=== PATIENT | female | born 1995 | race Caucasian/White ===

== ENCOUNTER 2017-12-20 13:23 | Emergency (ER) | payer MEDICAID, OTHER ==
--- NOTE | 2017-12-20 14:00 | ED Physician Documentation ---
PD HPI MHE - Stated complaint Stated Complaint: ANXIETY - History obtained from History obtained from: Patient - History of Present Illness Primary symptom: Anxiety, Other (trouble breathing, lump in throat and hives rash in armpits and groin for day or two. Has had rash for few days.) Timing - onset: How many days ago (several) Contributing factors: Other (she has feeling of heart rate faster, lump in throat and chest fullness, and also having rash in armpits and groin. She thought it was anxiety but relaxing and mediation aren't helping. No new soaps, foods, meds, etc.) Similar symptoms before: Has not had sx before (has had anxiety episodes int he past, but had not had rash nor throat discomfort with it.) Recently seen: Not recently seen Review of Systems Constitutional: denies: Fever, Chills Nose: denies: Rhinorrhea / runny nose, Congestion Throat: denies: Sore throat (but has a feeling of lump in the throat.) Cardiac: reports: Chest pain / pressure, Palpitations. denies: Pedal edema, Calf pain Respiratory: denies: Dyspnea, Cough GI: reports: Nausea. denies: Abdominal Pain, Vomiting, Diarrhea : denies: Dysuria, Frequency, Discharge Skin: reports: Rash. denies: Lesions (red raised rash in groin and armpits area.) Neurologic: reports: Generalized weakness. denies: Focal weakness, Numbness Psychiatric: reports: Anxiety. denies: Depressed, Suicidal, Delusions, Insomnia Immunocompromised: denies: Immunocompromised PD PAST MEDICAL HISTORY - Past Medical History Neuro: Headache/migraine Musculoskeletal: Scoliosis - Past Surgical History Past Surgical History: Yes HEENT: Tonsil/Adenoidectomy - Present Medications Home Medications: Ambulatory Orders Medication Instructions Recorded Confirmed Albuterol Sulfate [Proair Hfa 1 - 2 puffs INH Q4H PRN #1 inhaler 06/26/16 Inhaler] Cetirizine [ZyrTEC] 10 mg PO DAILY #20 tablet 12/20/17 Dexamethasone [Decadron] 4 mg PO DAILY #5 tablet 12/20/17 Famotidine [Pepcid] 20 mg PO ONCE #20 tablet 12/20/17 Lorazepam [Ativan] 1 mg PO Q12H PRN #12 tablet 12/20/17 Sertraline [Zoloft] 1 tab PO DAILY 12/20/17 12/20/17 - Allergies Allergies/Adverse Reactions: Allergies Allergy/AdvReac Type Severity Reaction Status Date / Time No Known Drug Allergies Allergy Verified 12/20/17 14:13 - Living Situation Living Arrangement: reports: At home - Social History Does the pt smoke?: No Smoking Status: Never smoker Does the pt drink ETOH?: No Does the pt have substance abuse?: No - Immunizations Immunizations are current?: Yes - POLST Patient has POLST: No PD ED PE NORMAL - Vitals Vital signs reviewed: Yes - General General: Alert and oriented X 3, No acute distress, Well developed/nourished - HEENT HEENT: Ears normal, Pharynx benign - Neck Neck: Supple, no meningeal sign, No adenopathy, Thyroid normal - Cardiac Cardiac: RRR, No murmur - Respiratory Respiratory: Clear bilaterally - Abdomen Abdomen: Soft, Non tender - Back Back: No CVA TTP - Derm Derm: Normal color, Warm and dry, Other (hives appearing rash in armpits/upper arms noted (deferred inguinal exam)) - Extremities Extremities: No deformity, No tenderness to palpate, Normal ROM s pain - Neuro Neuro: Alert and oriented X 3, No motor deficit, Normal speech Results - Vitals Vitals: Vital Signs - 24 hr 12/20/17 12/20/17 14:06 16:17 Temperature 37.1 C Heart Rate 79 97 Respiratory 16 16 Rate Blood Pressure 142/75 H 126/48 L O2 Saturation 100 100 Oxygen O2 Source Room air - Labs Labs: Laboratory Tests 12/20/17 12/20/17 12/20/17 14:41 14:41 14:41 WBC 14.3 H RBC 5.11 Hgb 14.4 Hct 42.7 MCV 83.6 MCH 28.3 MCHC 33.8 RDW 14.6 Plt Count 352 MPV 9.1 Neut # 11.7 H Lymph # 1.4 L [place] # 0.6 Eos # 0.4 Baso # 0.1 Absolute Nucleated RBC 0.00 Nucleated RBC % 0.0 ESR Sodium 137 Potassium 3.1 L Chloride 99 L Carbon Dioxide 24 Anion Gap 14.0 H BUN 17 Creatinine 0.7 Estimated GFR (MDRD) 105 Glucose 109 H Lactic Acid Calcium 9.9 Magnesium 2.0 Total Bilirubin 0.8 AST 21 ALT 34 Alkaline Phosphatase 121 Total Protein 8.7 H Albumin 5.1 Globulin 3.6 Albumin/Globulin Ratio 1.4 Lipase 16 L TSH 2.91 12/20/17 12/20/17 14:41 15:34 WBC RBC Hgb Hct MCV MCH MCHC RDW Plt Count MPV Neut # Lymph # [place] # Eos # Baso # Absolute Nucleated RBC Nucleated RBC % ESR 15 Sodium Potassium Chloride Carbon Dioxide Anion Gap BUN Creatinine Estimated GFR (MDRD) Glucose Lactic Acid 1.2 Calcium Magnesium Total Bilirubin AST ALT Alkaline Phosphatase Total Protein Albumin Globulin Albumin/Globulin Ratio Lipase TSH PD MEDICAL DECISION MAKING - ED course Complexity details: reviewed results, considered differential (seems like allergic reaction but not sure of allergen. ), d/w patient Departure - Departure Disposition: 01 Home, Self Care Clinical Impression: Acute allergic reaction Qualifiers: Encounter type: initial encounter Qualified Code(s): T78.40XA - Allergy, unspecified, initial encounter Condition: Stable Record reviewed to determine appropriate education?: Yes Instructions: ED Allergic Reaction General Other Follow-Up: [facility] [Provider Group] Prescriptions: Cetirizine [ZyrTEC] 10 mg PO DAILY #20 tablet Dexamethasone [Decadron] 4 mg PO DAILY #5 tablet Famotidine [Pepcid] 20 mg PO ONCE #20 tablet Lorazepam [Ativan] 1 mg PO Q12H PRN #12 tablet PRN Reason: Anxiety Comments: The rash with a feeling of a lump in your throat and some tightness in your chest would suggest an allergic reaction. Will treat it that way. There may be some component of anxiety as well. He can use Ativan intermittently if needed for that. Follow-up with your primary care regarding any further testing if this does not improve in the next couple of days. Discharge Date/Time: 12/20/17 16:25
[2017-12-20] MEDS ORDERED: SODIUM CHLORIDE 0.9% 1,000 ML IV ONE (14:29)
[2017-12-20] MEDS ORDERED: LORazepam 2 MG/ML VIAL IVP STA (14:30)
[2017-12-20] MEDS ORDERED: DEXAMETHASONE 10 MG/ML VIAL IVP STA (14:30)
[2017-12-20] MEDS ORDERED: diphenhydrAMINE INJ 50 MG/ML VIAL IVP STA (14:30)
[2017-12-20 14:55] LABS: BASOPHILS # (AUTO) 0.1 10^3/uL (0.0-0.1); BASOPHILS % (AUTO) 0.8 %; EOSINOPHILS # (AUTO) 0.4 10^3/uL (0.0-0.7); EOSINOPHILS % (AUTO) 2.7 %; HGB - HEMOGLOBIN 14.4 g/dL (12.0-16.0); LYMPHOCYTES # (AUTO) 1.4 10^3/uL (1.5-3.5); LYMPHOCYTES % (AUTO) 10.1 %; MEAN CORPUSCULAR HEMOGLOBIN 28.3 pg (27.0-31.0); MEAN CORPUSCULAR HGB CONC 33.8 g/dL (32.0-36.0); MEAN CORPUSCULAR VOLUME 83.6 fL (81.0-99.0); MEAN PLATELET VOLUME 9.1 fL (7.9-10.8); MONOCYTES # (AUTO) 0.6 10^3/uL (0.0-1.0); MONOCYTES % (AUTO) 4.6 %; NEUTROPHILS # (AUTO) 11.7 10^3/uL (1.5-6.6); NEUTROPHILS % (AUTO) 81.8 %; PLT - PLATELET COUNT 352 10^3/uL (130-450); RED BLOOD COUNT 5.11 10^6/uL (4.20-5.40); RED CELL DISTRIBUTION WIDTH 14.6 % (12.0-15.0); WHITE BLOOD COUNT 14.3 x10^3/uL (4.8-10.8)
[2017-12-20 15:07] LABS: ALBUMIN 5.1 g/dL (3.2-5.5); ALBUMIN/GLOBULIN RATIO 1.4 (1.0-2.2); BILIRUBIN,TOTAL 0.8 mg/dL (0.2-1.0); CALCIUM 9.9 mg/dL (8.5-10.3); CREATININE 0.7 mg/dL (0.4-1.0); TOTAL PROTEIN 8.7 g/dL (6.7-8.2)
[2017-12-20] MEDS ORDERED: POTASSIUM BICARB 25 MEQ TABLET PO STA (15:29)
[2017-12-20 16:18] VITALS: BP 126/48
== END 2017-12-20 16:25 | disposition home or self-care (01) ==
LOC: ED 13:23
DX: T78.40XA Allergy, unspecified, initial encounter (principal); F41.9 Anxiety disorder, unspecified
CPT/HCPCS: 36415; 80053; 83605; 83690; 83735; 84443; 85025; 85651; 96361; 96374; 99283; A9270; J1200; J2060

== ENCOUNTER 2018-03-08 10:37 | Emergency (ER) | payer OTHER ==
[2018-03-08] MEDS ORDERED: LORazepam 0.5 MG TABLET PO STA (12:21)
--- NOTE | 2018-03-08 12:24 | ED Physician Documentation ---
PD HPI CHEST PAIN - Stated complaint Stated Complaint: ANXIETY - Chief complaint Chief Complaint: Cardiac - History obtained from History obtained from: Patient - History of Present Illness Timing - onset: Other (This is a 23-year-old woman with history of anxiety who presents with multiple complaints including 6 months of constant chest pain worse with deep breathing, inflammation in her chest, severe anxiety and fluttering of the eyes today without losing consciousness. She was on Zoloft and stopped about a month ago for the same symptoms and it was not helping. She is not in counseling. She seen multiple physicians for this and had multiple workups including chest x-rays and EKGs without obvious pertinent findings. She was on her way to the [facility] [place] for an appointment today and they deferred her to the emergency department because her eyes were fluttering. She has no acute complaints.) Review of Systems Constitutional: denies: Fatigue, Weight Loss Cardiac: denies: Pedal edema, Calf pain Respiratory: denies: Cough, Hemoptysis, Wheezing GI: denies: Abdominal Pain : denies: Now EGA PD PAST MEDICAL HISTORY - Past Medical History Cardiovascular: None Respiratory: None Endocrine/Autoimmune: None GI: None PULMONARY PHYSICAL THERAPIST: None : None HEENT: None Psych: Anxiety Musculoskeletal: Scoliosis Derm: Eczema - Past Surgical History Past Surgical History: Yes General: Cholecystectomy HEENT: Tonsil/Adenoidectomy - Present Medications Home Medications: Ambulatory Orders Medication Instructions Recorded Confirmed Albuterol Sulfate [Proair Hfa 1 - 2 puffs INH Q4H PRN #1 inhaler 06/26/16 Inhaler] Cetirizine [ZyrTEC] 10 mg PO DAILY #20 tablet 12/20/17 Dexamethasone [Decadron] 4 mg PO DAILY #5 tablet 12/20/17 Famotidine [Pepcid] 20 mg PO ONCE #20 tablet 12/20/17 Lorazepam [Ativan] 1 mg PO Q12H PRN #12 tablet 12/20/17 Sertraline [Zoloft] 1 tab PO DAILY 12/20/17 12/20/17 Bacitracin/Polymyxin Ophth Oin 1 appful OPTH TID #1 tube 03/08/18 [Polysporin Ophth Oint] Lorazepam [Ativan] 1 mg PO TID PRN #15 tablet 03/08/18 Meloxicam [Mobic] 7.5 mg PO BIDWM PRN #15 tablet 03/08/18 - Allergies Allergies/Adverse Reactions: Allergies Allergy/AdvReac Type Severity Reaction Status Date / Time No Known Drug Allergies Allergy Verified 12/20/17 14:13 - Social History Does the pt smoke?: No Smoking Status: Never smoker Does the pt drink ETOH?: No Does the pt have substance abuse?: No - Immunizations Immunizations are current?: Yes - POLST Patient has POLST: No PD ED PE NORMAL - Vitals Vital signs reviewed: Yes - General General: Alert and oriented X 3, No acute distress - HEENT HEENT: PERRL, EOMI - Neck Neck: Supple, no meningeal sign, No bony TTP - Cardiac Cardiac: RRR, No murmur - Respiratory Respiratory: No respiratory distress, Clear bilaterally - Neuro Neuro: Alert and oriented X 3, Normal speech Results - Vitals Vitals: Vital Signs - 24 hr 03/08/18 10:48 Temperature 36.6 C Heart Rate 70 Respiratory 16 Rate Blood Pressure 133/90 H O2 Saturation 100 Oxygen O2 Source Room air PD MEDICAL DECISION MAKING - ED course ED course: 23-year-old woman with multiple complaints which seems psychosomatic, she points to her neck and I examine it and she says how it is all deviated to the right but it is symmetric. She also feels like her ribs are out on the right, there is no obvious abnormality to palpation to the posterior chest wall. She also has a mild case of pinkeye on the right which her also has. - Sepsis Event Vital Signs: Vital Signs - 24 hr 03/08/18 10:48 Temperature 36.6 C Heart Rate 70 Respiratory 16 Rate Blood Pressure 133/90 H O2 Saturation 100 Oxygen O2 Source Room air Departure - Departure Disposition: 01 Home, Self Care Clinical Impression: Anxiety Condition: Good Record reviewed to determine appropriate education?: Yes Instructions: ED Panic Attack Prescriptions: Bacitracin/Polymyxin Ophth Oin [Polysporin Ophth Oint] 1 appful OPTH TID #1 tube Lorazepam [Ativan] 1 mg PO TID PRN #15 tablet PRN Reason: Anxiety Meloxicam [Mobic] 7.5 mg PO BIDWM PRN #15 tablet PRN Reason: Pain Comments: Call your doctor to arrange a follow-up appointment, make the next available appointment. In the interim, return anytime if worse or if new symptoms develop. Your blood pressure was elevated today on check into the emergency department. This does not mean that you have hypertension, it is a common phenomenon to come to the emergency department and have elevated blood pressure. I recommend that you see your primary care physician within the week to have it rechecked when you are feeling better.
[2018-03-08 12:35] VITALS: BP 133/75
== END 2018-03-08 12:36 | disposition home or self-care (01) ==
LOC: EDUNIT# → ED 10:37
DX: F41.9 Anxiety disorder, unspecified (principal); T43.226A Underdosing of selective serotonin reuptake inhibitors, initial encounter; Z91.128 Patient's intentional underdosing of medication regimen for other reason; R03.0 Elevated blood-pressure reading, without diagnosis of hypertension
CPT/HCPCS: 99283; A9270

== ENCOUNTER 2018-04-16 09:10 | Outpatient (CLI) | payer OTHER | END 2018-04-16 09:11 | disposition critical access hospital (66) | LOC: EMS 09:10 | PROVIDERS: ATTEND Surgery | DX: R07.9 Chest pain, unspecified (principal); M25.511 Pain in right shoulder; R51 Headache | CPT/HCPCS: A0425; A0429 ==

== ENCOUNTER 2018-04-16 09:39 | Emergency (ER) | payer OTHER ==
[2018-04-16] MEDS ORDERED: KETOROLAC 60 MG/2 ML VIAL IVP STA (10:03)
[2018-04-16] MEDS ORDERED: LORazepam 2 MG/ML VIAL IVP STA (10:03)
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
--- NOTE | 2018-04-16 10:45 | XRAY Report ---
Procedure Date: 04/16/2018 Accession Number: [id number] / [id number] Procedure: XR - Chest 2 View X-Ray CPT Code: 93014 FULL RESULT: EXAM: CHEST RADIOGRAPHY EXAM DATE: 04/16/2018 10:33 AM. CLINICAL HISTORY: Cp. COMPARISON: None. TECHNIQUE: 2 views. FINDINGS: Lungs/Pleura: No focal opacities evident. No pleural effusion. No pneumothorax. Normal volumes. Mediastinum: Heart and mediastinal contours are unremarkable. Other: None. IMPRESSION: Normal 2-view chest radiography. [facility]
[2018-04-16 11:06] LABS: MUDS CUTOFF CONCENTRATIONS CUTOFF CONC BELOW:
[2018-04-16 11:08] LABS: BASOPHILS % (AUTO) 0.4 %; EOSINOPHILS # (AUTO) 0.1 10^3/uL (0.0-0.7); EOSINOPHILS % (AUTO) 0.8 %; HGB - HEMOGLOBIN 14.5 g/dL (12.0-16.0); LYMPHOCYTES # (AUTO) 1.2 10^3/uL (1.5-3.5); LYMPHOCYTES % (AUTO) 10.1 %; MEAN CORPUSCULAR HEMOGLOBIN 28.9 pg (27.0-31.0); MEAN CORPUSCULAR HGB CONC 33.7 g/dL (32.0-36.0); MEAN CORPUSCULAR VOLUME 85.8 fL (81.0-99.0); MEAN PLATELET VOLUME 9.1 fL (7.9-10.8); MONOCYTES # (AUTO) 0.8 10^3/uL (0.0-1.0); MONOCYTES % (AUTO) 6.9 %; NEUTROPHILS # (AUTO) 9.6 10^3/uL (1.5-6.6); NEUTROPHILS % (AUTO) 81.8 %; PLT - PLATELET COUNT 361 10^3/uL (130-450); RED BLOOD COUNT 4.99 10^6/uL (4.20-5.40); RED CELL DISTRIBUTION WIDTH 15.1 % (12.0-15.0); WHITE BLOOD COUNT 11.7 x10^3/uL (4.8-10.8)
[2018-04-16 11:22] LABS: ALBUMIN 4.7 g/dL (3.2-5.5); ALBUMIN/GLOBULIN RATIO 1.3 (1.0-2.2); BILIRUBIN,TOTAL 1.2 mg/dL (0.2-1.0); CALCIUM 9.5 mg/dL (8.5-10.3); CREATININE 0.7 mg/dL (0.4-1.0); TOTAL PROTEIN 8.4 g/dL (6.7-8.2)
[2018-04-16 11:26] LABS: AMPHETAMINE SCREEN,URINE NEGATIVE (NEGATIVE); BENZODIAZEPINES SCREEN, URINE NEGATIVE (NEGATIVE); COCAINE SCREEN URINE NEGATIVE (NEGATIVE); METHADONE SCREEN, URINE NEGATIVE (NEGATIVE); METHAMPHETAMINES SCREEN, URINE NEGATIVE (NEGATIVE); OPIATE SCREEN, URINE NEGATIVE (NEGATIVE); OXYCODONE SCREEN, URINE NEGATIVE (NEGATIVE); PROPOXYPHENE SCREEN, URINE NEGATIVE (NEGATIVE); TRICYCLIC ANTIDEPRESSANT,URINE NEGATIVE (NEGATIVE)
[2018-04-16 11:55] LABS: HCG,QUALITATIVE BLOOD NEGATIVE
[2018-04-16] MEDS ORDERED: POTASSIUM CHLORIDE 20 MEQ TABLET PO STA (13:19)
[2018-04-16 16:21] VITALS: BP 106/63
== END 2018-04-16 16:42 | disposition short-term general hospital (02) ==
LOC: EDUNIT# → EDBD → ED 09:39
DX: I45.6 Pre-excitation syndrome (principal); R55 Syncope and collapse; I45.81 Long QT syndrome
CPT/HCPCS: 36415; 71046; 80053; 80306; 83690; 84443; 84484; 84703; 85025; 85379; 93005; 96374; 96375; 99284; A9270; J2060

== ENCOUNTER 2019-12-07 23:51 | Outpatient (CLI) | payer OTHER | END 2019-12-07 23:59 | disposition EMS.NT | LOC: EMS 23:51 | PROVIDERS: ATTEND Surgery | DX: R11.10 Vomiting, unspecified (principal) ==

== ENCOUNTER 2020-04-20 17:41 | Outpatient (CLI) | payer SELFPAY | END 2020-04-20 17:42 | disposition home or self-care (01) | LOC: COV 17:41 | PROVIDERS: ATTEND Family Medicine | DX: R50.9 Fever, unspecified (principal); R05 Cough; R06.02 Shortness of breath; M79.10 Myalgia, unspecified site; R53.83 Other fatigue; J02.9 Acute pharyngitis, unspecified; R43.8 Other disturbances of smell and taste; R09.81 Nasal congestion; R11.2 Nausea with vomiting, unspecified; Z20.828 Contact with and (suspected) exposure to other viral communicable diseases ==

== ENCOUNTER 2020-11-04 15:16 | Outpatient (CLI) | payer SELFPAY | END 2020-11-04 15:17 | disposition EMS.NT | LOC: EMS 15:16 | DX: R00.0 Tachycardia, unspecified (principal) ==

== ENCOUNTER 2020-11-07 00:41 | Outpatient (CLI) | payer SELFPAY | END 2020-11-07 00:42 | disposition left against medical advice (07) | LOC: EMS 00:41 | DX: R45.1 Restlessness and agitation (principal); F43.9 Reaction to severe stress, unspecified; G47.00 Insomnia, unspecified; M54.9 Dorsalgia, unspecified; R07.89 Other chest pain; M79.602 Pain in left arm; M79.601 Pain in right arm; J02.9 Acute pharyngitis, unspecified ==

== ENCOUNTER 2020-11-10 13:27 | Outpatient (CLI) | payer SELFPAY | END 2020-11-10 13:28 | disposition EMS.NT | LOC: EMS 13:27 | DX: R03.0 Elevated blood-pressure reading, without diagnosis of hypertension (principal); R44.8 Other symptoms and signs involving general sensations and perceptions; R42 Dizziness and giddiness ==

== ENCOUNTER 2020-11-19 03:13 | Outpatient (CLI) | payer SELFPAY | END 2020-11-19 03:14 | disposition critical access hospital (66) | LOC: EMS 03:13 | PROVIDERS: ATTEND Emergency Medicine | DX: R00.0 Tachycardia, unspecified (principal); R42 Dizziness and giddiness; R55 Syncope and collapse; R00.2 Palpitations; R11.0 Nausea | CPT/HCPCS: A0425; A0427 ==

== ENCOUNTER 2020-11-19 03:27 | Emergency (ER) | payer SELFPAY ==
[2020-11-19] MEDS ORDERED: SODIUM CHLORIDE 0.9% 1,000 ML IV STA ×3 (03:58→06:43)
--- NOTE | 2020-11-19 04:00 | ED Physician Documentation ---
PD HPI NVD - Stated complaint Stated Complaint: SYNCOPE, DIARRHEA, VOMITING - Chief complaint Chief Complaint: General - History obtained from History obtained from: Patient - History of Present Illness Timing - onset: How many weeks ago (2) Timing - duration: Weeks (2) Timing - details: Gradual onset, Still present, Waxing and waning Associated symptoms: Abdominal pain Improved by: Other (nothing) Worsened by: Other (nothing) Similar symptoms before: Has not had sx before Recently seen: Clinic - Additonal information Additional information: 25-year-old female with history of anxiety as had an issue with vomiting and diarrhea for the past 2 1/2 weeks. She has become more and more stressed as her identical tripplet sister has developed leukemia. She feels horrible and has tried to keep working despite feeling poorly. She did have some anxiety and she tried some edibles in the form of a drink and she later discovered she had taken 200mg (usual dose is 10mg). Since that time she has had this trouble with diarrhea 3-4 times per day. This evening she developed a rapid heart rate and felt she would pass out and she called the ambulance. Review of Systems Constitutional: reports: Fatigue. denies: Fever, Chills, Myalgias Eyes: denies: Decreased vision Ears: denies: Ear pain Nose: reports: Congestion Throat: denies: Sore throat Cardiac: denies: Chest pain / pressure, Palpitations Respiratory: reports: Dyspnea. denies: Cough GI: reports: Nausea, Vomiting, Diarrhea. 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 : None HEENT: None Psych: Anxiety Musculoskeletal: Scoliosis Derm: Eczema - Past Surgical History Past Surgical History: Yes General: Cholecystectomy HEENT: Tonsil/Adenoidectomy - Present Medications Home Medications: Ambulatory Orders Medication Instructions Recorded Confirmed Cetirizine [ZyrTEC] 10 mg PO DAILY 11/19/20 11/19/20 DULoxetine [Cymbalta] 30 mg PO DAILY 11/19/20 11/19/20 LORazepam [Ativan] PRN 11/19/20 Ondansetron Odt [Zofran] 4 mg TL Q6H PRN #10 tab 11/19/20 - Allergies Allergies/Adverse Reactions: Allergies Allergy/AdvReac Type Severity Reaction Status Date / Time cephalexin [From Keflex] AdvReac Nausea Verified 11/19/20 03:44 - Social History Does the pt smoke?: No Smoking Status: Never smoker Does the pt drink ETOH?: No Does the pt have substance abuse?: No - Immunizations Immunizations are current?: Yes - POLST Patient has POLST: No PD ED PE NORMAL - Vitals Vital signs reviewed: Yes (hypertensive) - General General: Alert and oriented X 3, No acute distress, Well developed/nourished - HEENT HEENT: Atraumatic, PERRL, EOMI, Pharynx benign, Other (mild erythema to both TM's with retained landmarks.) - Neck Neck: Supple, no meningeal sign, No bony TTP, No adenopathy, Thyroid normal - Cardiac Cardiac: RRR, No murmur - Respiratory Respiratory: No respiratory distress, Clear bilaterally - Abdomen Abdomen: Normal bowel sounds, Soft, Non tender, Non distended, No organomegaly - Back Back: No CVA TTP, No spinal TTP - Derm Derm: Normal color, Warm and dry, No rash - Extremities Extremities: No deformity, No edema - Neuro Neuro: Alert and oriented X 3, 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, No motor deficit, No sensory deficit, Normal speech Eye Opening: Spontaneous Motor: Obeys Commands Verbal: Oriented GCS Score: 15 - Psych Psych: Normal mood, Normal affect Results - Vitals Vitals: Vital Signs - 24 hr 11/19/20 11/19/20 03:39 07:00 Temperature 36.5 C 36.8 C Heart Rate 85 87 Respiratory 18 16 Rate Blood Pressure 123/111 H 129/83 H O2 Saturation 100 98 Oxygen O2 Source Room air - EKG (time done) 0403 Rate: Rate (enter#) (87) Rhythm: NSR Compare to prior EKG: Changed from prior EKG (SPT 04-16-2018 the [place] interval and the QT interval are now normal ) Computer interpretation: Agree with computer - Labs Labs: Laboratory Tests 11/19/20 11/19/20 11/19/20 04:54 04:54 04:54 WBC 11.5 H RBC 4.71 Hgb 14.0 Hct 42.2 MCV 89.6 MCH 29.7 MCHC 33.2 RDW 12.6 Plt Count 298 MPV 9.8 Neut # (Auto) 9.0 H Lymph # (Auto) 1.4 L Charles # (Auto) 0.7 Eos # (Auto) 0.3 Baso # (Auto) 0.0 Absolute Nucleated RBC 0.00 Nucleated RBC % 0.0 Sodium 137 Potassium 3.5 Chloride 102 Carbon Dioxide 24 Anion Gap 11.0 BUN 13 Creatinine 0.7 Estimated GFR (MDRD) 102 Glucose 108 H Calcium 8.7 Total Bilirubin 0.7 AST 19 ALT 21 Alkaline Phosphatase 91 Troponin I High Sens 2.3 Total Protein 7.3 Albumin 4.1 Globulin 3.2 Albumin/Globulin Ratio 1.3 Lipase 32 TSH Free T4 Urine Color Urine Clarity Urine pH Ur Specific [place] Urine Protein Urine Glucose (UA) Urine Ketones Urine Occult Blood Urine Nitrite Urine Bilirubin Urine Urobilinogen Ur Leukocyte Esterase Ur Microscopic Review Urine Culture Comments 11/19/20 11/19/20 11/19/20 04:54 04:54 05:30 WBC RBC Hgb Hct MCV MCH MCHC RDW Plt Count MPV Neut # (Auto) Lymph # (Auto) Charles # (Auto) Eos # (Auto) Baso # (Auto) Absolute Nucleated RBC Nucleated RBC % Sodium Potassium Chloride Carbon Dioxide Anion Gap BUN Creatinine Estimated GFR (MDRD) Glucose Calcium Total Bilirubin AST ALT Alkaline Phosphatase Troponin I High Sens Total Protein Albumin Globulin Albumin/Globulin Ratio Lipase TSH 6.34 H Free T4 0.88 Urine Color YELLOW Urine Clarity CLEAR Urine pH 6.5 Ur Specific [place] 1.025 Urine Protein NEGATIVE Urine Glucose (UA) NEGATIVE Urine Ketones NEGATIVE Urine Occult Blood TRACE-INTA Urine Nitrite NEGATIVE Urine Bilirubin NEGATIVE Urine Urobilinogen 0.2 (NORMAL) Ur Leukocyte Esterase NEGATIVE Ur Microscopic Review NOT INDICATED Urine Culture Comments NOT INDICATED - Rads (name of study) chest Radiology: Prelim report reviewed (Impression: No active cardiopulmonary disease demonstrated.), EMP read indepedently, See rad report Procedures - IVC sono (time) 0350 Bedside IVC sono: IVC measures (cm) (0.66), IVC collapsed c insp (cm) (complete), Dehydration (est 3 liter deficit) 0710 Bedside IVC sono: IVC measures (cm) (1.46), Euvolemia PD MEDICAL DECISION MAKING - ED course Complexity details: reviewed old records, reviewed results, re-evaluated patient, considered differential, d/w patient ED course: 25-year-old female who is really not feeling well after 2-1/2 weeks of diarrhea is critically dehydrated on interrogation of the inferior vena cava. She looks like she will take about 3 L to bring her IVC back to normal. Hydration is begun and she does feel improved with hydration. She has a lot of complaints and concerns about possible things that are wrong with her and in my estimation it looks like the biggest thing that she has today is this level of dehydration. She did not have any abnormalities to her electrolytes her urine was clear.She did not have diarrhea here in the emergency department we will have her use some Imodium and we will provide some zofran as needed. She is feeling much improved IVC has come up to 1.46 with 2.5 liters. Departure - Departure Disposition: 01 Home, Self Care Clinical Impression: Dehydration Diarrhea Qualifiers: Diarrhea type: unspecified type Qualified Code(s): R19.7 - Diarrhea, unspecified Condition: Stable Instructions: ED Dehydration, ED Diet Vomiting Diarrhea Follow-Up: TESFAYE THOMAS [Physician No Access] - Prescriptions: Ondansetron Odt [Zofran] 4 mg TL Q6H PRN #10 tab PRN Reason: Nausea / Vomiting Comments: Today your symptoms appear to be related to dehydration related to your prolonge d diarrhea. Use symptomatic treatment for this and expect resolution in the next week. Stay hydrated. Use immodium as needed to control the diarrhea and zofran as needed for nausea.
[2020-11-19] MEDS ORDERED: ONDANSETRON 4 MG/2 ML VIAL IVP STA (04:50)
[2020-11-19 04:57] LABS: BASOPHILS % (AUTO) 0.3 %; EOSINOPHILS # (AUTO) 0.3 10^3/uL (0.0-0.7); EOSINOPHILS % (AUTO) 2.2 %; HCT - HEMATOCRIT 42.2 % (37.0-47.0); LYMPHOCYTES # (AUTO) 1.4 10^3/uL (1.5-3.5); LYMPHOCYTES % (AUTO) 12.3 %; MEAN CORPUSCULAR HEMOGLOBIN 29.7 pg (27.0-31.0); MEAN CORPUSCULAR HGB CONC 33.2 g/dL (32.0-36.0); MEAN CORPUSCULAR VOLUME 89.6 fL (81.0-99.0); MEAN PLATELET VOLUME 9.8 fL (7.9-10.8); MONOCYTES # (AUTO) 0.7 10^3/uL (0.0-1.0); MONOCYTES % (AUTO) 6.1 %; NEUTROPHILS % (AUTO) 78.7 %; PLT - PLATELET COUNT 298 10^3/uL (130-450); RED BLOOD COUNT 4.71 10^6/uL (4.20-5.40); RED CELL DISTRIBUTION WIDTH 12.6 % (12.0-15.0); WHITE BLOOD COUNT 11.5 x10^3/uL (4.8-10.8)
[2020-11-19 05:12] LABS: ALBUMIN 4.1 g/dL (3.2-5.5); ALBUMIN/GLOBULIN RATIO 1.3 (1.0-2.2); BILIRUBIN,TOTAL 0.7 mg/dL (0.2-1.0); CALCIUM 8.7 mg/dL (8.5-10.3); CREATININE 0.7 mg/dL (0.4-1.0); POTASSIUM 3.5 mmol/L (3.5-5.0); TOTAL PROTEIN 7.3 g/dL (6.7-8.2)
[2020-11-19 05:43] LABS: BILIRUBIN,URINE NEGATIVE (NEGATIVE); GLUCOSE, URINE (UA) NEGATIVE (NEGATIVE); KETONES,URINE (UA) NEGATIVE (NEGATIVE); LEUKOCYTE ESTERASE, URINE NEGATIVE (NEGATIVE); NITRITE,URINE NEGATIVE (NEGATIVE); OCCULT BLOOD,URINE TRACE-INTA (NEGATIVE); PH,URINE 6.5 PH (5.0-7.5); PROTEIN,URINE NEGATIVE (NEGATIVE); UROBILINOGEN,URINE 0.2 (NORMAL) E.U./dL (NORMAL)
[2020-11-19 06:35] LABS: CLARITY,URINE CLEAR (CLEAR)
[2020-11-19 07:21] LABS: HCG UR QUAL NEGATIVE
[2020-11-19 07:25] VITALS: BP 129/93
--- NOTE | 2020-11-19 08:19 | XRAY Report ---
PROCEDURE: Chest 1 View X-Ray INDICATIONS: chest pain TECHNIQUE: One view of the chest was acquired. COMPARISON: 2 view chest 04/16/2018 FINDINGS: Surgical changes and devices: None. Lungs and pleura: No pleural effusions or pneumothorax. Lungs are clear. Mediastinum: Mediastinal contours appear normal. Heart size is normal. Bones and chest wall: No suspicious bony lesions. Overlying soft tissues appear unremarkable. IMPRESSION: Normal for age, source of current symptoms is not seen. Reviewed by: Gurvinder Márquez MD on 11/19/2020 8:18 AM PST Approved by: Gurvinder Márquez MD on 11/19/2020 8:18 AM PST Station ID: [id number]
== END 2020-11-19 07:30 | disposition home or self-care (01) ==
LOC: EDUNIT# → ED 03:27
DX: E86.0 Dehydration (principal); R19.7 Diarrhea, unspecified; R11.2 Nausea with vomiting, unspecified; F41.9 Anxiety disorder, unspecified
CPT/HCPCS: 36415; 80053; 81001; 81003; 81025; 83690; 84439; 84443; 84484; 85025; 87086; 93005; 96361; 96374; 99284

== ENCOUNTER 2020-11-19 10:53 | Emergency (ER) | payer SELFPAY ==
[2020-11-19 11:12] VITALS: BP 137/101
--- NOTE | 2020-11-19 12:09 | ED Physician Documentation ---
History of Present Illness - Stated complaint Stated Complaint: CHEST PX, LEFT ARM PX - Chief complaint Chief Complaint: General - Additonal information Additional information: 25-year-old female returns to the emergency department for further evaluation. She reports that she is feeling hot and flushed. She was seen by my colleague earlier this morning after about 2 weeks of diarrhea And vomiting that had developed after she had come back from vacation both her son and her partner were tested for Covid and were negative. She also reports that she has been anxious and stressed as her twin was recently diagnosed with leukemia. In an effort to address this stress she did drink an edible cannabis-containing drink that had over 200 mg. Since that time she had had worsening diarrhea and when seen by my colleague early in the morning she received 2-1/2 L of fluid as on IVC interrogation she appeared dehydrated. Patient reports that she recently received a prescription for Cymbalta for anxiety as well as Ativan. She received a prescription of Zofran for my colleague earlier today and when she was standing in line at the pharmacy she began to feel hot and flushed and did not feel that she could wait to rock picker the Zofran prescription. She called ahead to the emergency department as we reserve her room for her so that she could be reevaluated. On my exam she appears well and has a normal gait. She has no vital sign abno rmality is. She does appear somewhat anxious. She is requesting an additional 3 L of IV fluids however since being discharged from the emergency department she has had no further vomiting or diarrhea. She would like reassurance that there is nothing seriously wrong with her as she is worried about her sister who has leukemia. Screening labs completed earlier this morning included a CBC as well as electrolytes without any significant abnormalities. Urine showed no signs of infection. Review of Systems Constitutional: reports: Fatigue, Sweats, Other (feels hot and flushed). denies: Fever, Chills Eyes: reports: Reviewed and negative Ears: reports: Other (dizziness) Nose: denies: Rhinorrhea / runny nose, Congestion, Epistaxis Throat: denies: Dental pain / toothache, Oral lesions / sores, Sore throat Cardiac: denies: Chest pain / pressure, Palpitations Respiratory: denies: Dyspnea, Cough GI: reports: Nausea, Vomiting, Diarrhea : denies: Dysuria, Frequency, Hesitancy Skin: denies: Rash, Lesions Musculoskeletal: denies: Neck pain, Back pain Neurologic: denies: Focal weakness, Numbness, Difficulty speaking, Near syncope, Syncope, Altered mental status, Headache Psychiatric: reports: Anxiety PD PAST MEDICAL HISTORY - Past Medical History Cardiovascular: None Respiratory: None Endocrine/Autoimmune: None GI: None 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 : None HEENT: None Psych: Anxiety Musculoskeletal: Scoliosis Derm: Eczema - Past Surgical History Past Surgical History: Yes General: Cholecystectomy HEENT: Tonsil/Adenoidectomy - Present Medications Home Medications: Ambulatory Orders Medication Instructions Recorded Confirmed Cetirizine [ZyrTEC] 10 mg PO DAILY 11/19/20 11/19/20 DULoxetine [Cymbalta] 30 mg PO DAILY 11/19/20 11/19/20 LORazepam [Ativan] PRN 11/19/20 Ondansetron Odt [Zofran] 4 mg TL Q6H PRN #10 tab 11/19/20 - Allergies Allergies/Adverse Reactions: Allergies Allergy/AdvReac Type Severity Reaction Status Date / Time cephalexin [From Keflex] AdvReac Nausea Verified 11/19/20 03:44 - Social History Does the pt smoke?: No Smoking Status: Never smoker Does the pt drink ETOH?: No Does the pt have substance abuse?: No - Immunizations Immunizations are current?: Yes - POLST Patient has POLST: No PD ED PE EXPANDED - General General: Alert, No acute distress, Other (obese) - HEENT HEENT: Atraumatic, PERRL, Moist mucous membranes, Pharynx normal - Neck Neck: Supple w/out meningeal sx. No: Adenopathy - Cardiac Cardiac: Regular Rate, Regular Rhythm, Radial strong equal, Cap refill < 2 sec. No: Murmur Present - Respiratory Respiratory: Clear to ausultation maral. No: Distress, Labored - Abdomen Abdomen: Normal Bowel sounds. No: Tender to palpation - Derm Derm: Normal color, Warm and dry - Extremities Extremities: Normal. No: Deformity, Tenderness - Neuro Neuro: CNII-XII intact, Normal gait, Normal speech - GCS Eye Opening: Spontaneous Motor: Obeys Commands Verbal: Oriented Total: 15 Results - Vitals Vitals: Vital Signs - 24 hr 11/19/20 10:57 Temperature 36.9 C Heart Rate 86 Respiratory 18 Rate Blood Pressure 137/101 H O2 Saturation 99 Oxygen O2 Source Room air - EKG (time done) 1115 Rate: Rate (enter#) (76) Rhythm: NSR [place]: Normal Intervals: Normal IA QRS: Normal Ischemia: Normal ST segments Compare to prior EKG: Old EKG unavailable Computer interpretation: Agree with computer PD MEDICAL DECISION MAKING - ED course Complexity details: reviewed results, re-evaluated patient, considered differential, d/w patient ED course: 25-year-old female return to the emergency department for concerns that she continues to feel hot and flushed. Worried that she may be having a reaction to the Cymbalta that she took this morning that was recently prescribed for anxiety. Worried that she may still be persistently dehydrated after receiving 2-1/2 L of fluid given to her with her previous visit. She had reported vomiting and diarrhea for 2 weeks after recent vacation and cannabis use. On exam she appears remarkably well though is somewhat anxious. She is not tachycardic and she has a normal gait and unremarkable neuro exam. Her pulses are strong. She wants reassurance that the feeling of anxiety is going to go away. She reports she had none for nearly 3 years until after taking cannabis. I encouraged her to be gentle with herself get fluids and rest. There is no emergent medical concern at this time that needs to be further addressed. I declined to give the patient further IV fluids or to further interrogate her inferior vena cava as the documentation provided by my colleague earlier today shows adequate hydration. Patient is can continue to follow-up with a primary care appointment which is scheduled for early December. Emergent return precautions to the emergency department discussed Departure - Departure Disposition: Home, Self Care Clinical Impression: Feeling anxious Condition: Stable Record reviewed to determine appropriate education?: Yes Instructions: ED Anxiety Reaction Comments: Monica I think it is okay to continue to take the Cymbalta that had previously been prescribed for your anxiety. It typically takes this medication a few weeks before you have relief of anxiety. It is okay to also take the lorazepam that had been prescribed. Use this very sparingly. Everybody's reaction after taking cannabis can be different but I encourage you to be gentle with your self over the next few weeks. You do not appear to be dehydrated at this time. Your vital signs have been essentially normal. Your mouth appears very moist and your heart rate is now normal. We do not need to give you any further IV fluids. If at any point you have suddenly severe chest pain, have fainting episodes a return of vomiting or diarrhea especially if it is bloody or black then please return to the emergency department. Do not miss follow-up as scheduled with your primary care provider.
== END 2020-11-19 12:26 | disposition home or self-care (01) ==
LOC: ED 10:53
DX: F41.9 Anxiety disorder, unspecified (principal); R53.83 Other fatigue
CPT/HCPCS: 93005

== ENCOUNTER 2020-11-22 12:40 | Outpatient (CLI) | payer SELFPAY ==
[2020-11-22 16:31] LABS: BASOPHILS % (AUTO) 0.4 %; EOSINOPHILS # (AUTO) 0.2 10^3/uL (0.0-0.7); EOSINOPHILS % (AUTO) 2.1 %; HCT - HEMATOCRIT 44.4 % (37.0-47.0); HGB - HEMOGLOBIN 14.7 g/dL (12.0-16.0); LYMPHOCYTES # (AUTO) 1.1 10^3/uL (1.5-3.5); LYMPHOCYTES % (AUTO) 12.9 %; MEAN CORPUSCULAR HEMOGLOBIN 29.5 pg (27.0-31.0); MEAN CORPUSCULAR HGB CONC 33.1 g/dL (32.0-36.0); MEAN PLATELET VOLUME 10.8 fL (7.9-10.8); MONOCYTES # (AUTO) 0.6 10^3/uL (0.0-1.0); MONOCYTES % (AUTO) 6.8 %; NEUTROPHILS # (AUTO) 6.5 10^3/uL (1.5-6.6); NEUTROPHILS % (AUTO) 76.5 %; PLT - PLATELET COUNT 348 10^3/uL (130-450); RED BLOOD COUNT 4.99 10^6/uL (4.20-5.40); RED CELL DISTRIBUTION WIDTH 12.8 % (12.0-15.0); WHITE BLOOD COUNT 8.5 x10^3/uL (4.8-10.8)
[2020-11-22 16:54] LABS: ALBUMIN 4.6 g/dL (3.2-5.5); ALBUMIN/GLOBULIN RATIO 1.3 (1.0-2.2); CALCIUM 9.4 mg/dL (8.5-10.3); CREATININE 0.6 mg/dL (0.4-1.0); POTASSIUM 3.8 mmol/L (3.5-5.0); TOTAL PROTEIN 8.2 g/dL (6.7-8.2)
== END 2020-11-22 23:59 | disposition home or self-care (01) ==
LOC: LAB.N 12:40
PROVIDERS: ATTEND Family Medicine
DX: R19.7 Diarrhea, unspecified (principal)
CPT/HCPCS: 36415; 80053; 85025

== ENCOUNTER 2020-11-22 12:50 | Outpatient (CLI) | payer SELFPAY ==
[2020-11-22 17:02] LABS: H. PYLORIS ANTIGEN STL NEGATIVE (Negative)
[2020-11-22 17:04] LABS: FECAL OCCULT BLOOD (FIT) NEGATIVE (NEGATIVE)
== END 2020-11-22 23:59 | disposition home or self-care (01) ==
LOC: LAB.R 12:50
PROVIDERS: ATTEND Family Medicine
DX: R19.7 Diarrhea, unspecified (principal); Z20.822 Contact with and (suspected) exposure to COVID-19
CPT/HCPCS: 81599; 82274; 83993; 87045; 87046; 87177; 87209; 87329; 87338; 87427; 87493

== ENCOUNTER 2020-11-24 06:17 | Outpatient (CLI) | payer SELFPAY | END 2020-11-24 06:18 | disposition critical access hospital (66) | LOC: EMS 06:17 | PROVIDERS: ATTEND Emergency Medicine | DX: R00.0 Tachycardia, unspecified (principal); R19.7 Diarrhea, unspecified | CPT/HCPCS: A0425; A0429 ==

== ENCOUNTER 2020-11-24 06:31 | Emergency (ER) | payer SELFPAY ==
--- NOTE | 2020-11-24 08:05 | ED Physician Documentation ---
History of Present Illness - Stated complaint Stated Complaint: DEHYDRATED - Chief complaint Chief Complaint: General - History obtained from History obtained from: Patient - Additonal information Additional information: 25yF, previously healthy with FH crohns p/w chronic diarrhea and sensation of anxiety this morning with HR measured in the 150s. She has been experiencing chronic diarrhea that is nonchanging recently. no blood in stool. She has f/u appointment December 11 with new primary doctor Kaye Trevino in [place]. Review of Systems Ten Systems: 10 systems reviewed and negative Constitutional: denies: Fever GI: reports: Diarrhea. 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 HEENT: None Psych: Anxiety Musculoskeletal: Scoliosis Derm: Eczema - Past Surgical History Past Surgical History: Yes General: Cholecystectomy HEENT: Tonsil/Adenoidectomy - Present Medications Home Medications: Ambulatory Orders Medication Instructions Recorded Confirmed Cetirizine [ZyrTEC] 10 mg PO DAILY 11/19/20 11/24/20 DULoxetine [Cymbalta] 30 mg PO DAILY 11/19/20 11/24/20 LORazepam [Ativan] PRN 11/19/20 Ondansetron Odt [Zofran] 4 mg TL Q6H PRN #10 tab 11/19/20 11/24/20 - Allergies Allergies/Adverse Reactions: Allergies Allergy/AdvReac Type Severity Reaction Status Date / Time cephalexin [From Keflex] AdvReac Nausea Verified 11/24/20 06:44 - Social History Does the pt smoke?: No Smoking Status: Never smoker Does the pt drink ETOH?: No Does the pt have substance abuse?: No - Immunizations Immunizations are current?: Yes - POLST Patient has POLST: No PD ED PE NORMAL - Vitals Vital signs reviewed: Yes - General General: Alert and oriented X 3, No acute distress - HEENT HEENT: Atraumatic, PERRL, EOMI - Neck Neck: Supple, no meningeal sign - Cardiac Cardiac: RRR - Respiratory Respiratory: No respiratory distress, Clear bilaterally - Abdomen Abdomen: Non tender, Non distended - Female Female : Deferred - Rectal Rectal: Deferred - Back Back: No CVA TTP - Derm Derm: Normal color, Warm and dry - Extremities Extremities: No deformity, No edema - Neuro Neuro: Alert and oriented X 3 Results - Vitals Vitals: Vital Signs - 24 hr 11/24/20 06:40 Temperature 36.5 C Heart Rate 95 Respiratory 16 Rate Blood Pressure 121/82 H O2 Saturation 100 Oxygen O2 Source Room air PD MEDICAL DECISION MAKING - ED course ED course: 25yF with chronic diarrhea presents for eval stating she is dehydrated. Patient reassured after I discussed that she has normal vitals and physical exam. Extensive education given about symptomatic treatments. Return precautions given. Patient will f/u with her PCP. Departure - Departure Disposition: Home, Self Care Clinical Impression: Anxiety, Chronic diarrhea Condition: Good Instructions: IBS Diet Lifestyle Follow-Up: KAYE TREVINO, DESTINEE [Provider Admit Priv/Credential] - Comments: You were seen in the emergency department for chronic diarrhea. You have normal vital signs and a normal physical exam here in the emergency room. Extensive stool studies were sent that your doctor can follow up. Please keep your appointment December 11 with Kaye Trevino at the [facility]. Please return to the emergency department for new or worsening symptoms or other concerns. Check out the meditation Netflix series "Headspace" to help you learn tools for navigating stress and anxiety. Hope you feel better!
[2020-11-24 08:13] LABS: FECAL OCCULT BLOOD (FIT) NEGATIVE (NEGATIVE)
[2020-11-24 08:16] VITALS: BP 119/72
== END 2020-11-24 08:15 | disposition home or self-care (01) ==
LOC: EDUNIT# → ED 06:31
DX: K52.9 Noninfective gastroenteritis and colitis, unspecified (principal); F41.9 Anxiety disorder, unspecified; Z83.79 Family history of other diseases of the digestive system
CPT/HCPCS: 81599; 82274; 82705; 83630; 87045; 87046; 87177; 87209; 87493; 99283; 99284

== ENCOUNTER 2020-11-24 17:47 | Outpatient (CLI) | payer SELFPAY | END 2020-11-24 17:48 | disposition critical access hospital (66) | LOC: EMS 17:47 | PROVIDERS: ATTEND Emergency Medicine | DX: R11.2 Nausea with vomiting, unspecified (principal); R53.1 Weakness | CPT/HCPCS: A0425; A0429 ==

== ENCOUNTER 2020-11-24 18:05 | Emergency (ER) | payer SELFPAY ==
--- NOTE | 2020-11-24 19:23 | ED Physician Documentation ---
PD HPI NVD - Stated complaint Stated Complaint: V/D - Chief complaint Chief Complaint: Abd Pain - History obtained from History obtained from: Patient - History of Present Illness Timing - duration: Months (1-2 months of diarrhea and cramping abd pains. Seen this morning here and had increased cramping and diarrhea today, but also with nausea and vomiting after taking Cymbalta. Had had some similar symptoms after Cymbalta a week ago. Also with some itching after the med.) Timing - details: Still present Associated symptoms: Abdominal pain (cramping intermittent). No: Fever, Near syncope / syncope Contributing factors: No: Sick contact, Bad food, Recent antibiotics Similar symptoms before: No diagnosis (stool studies pending from this morning (CDiff negative but others pending).) Recently seen: Clinic, Emergency Dept Review of Systems Constitutional: denies: Fever, Chills Nose: denies: Rhinorrhea / runny nose, Congestion Throat: denies: Sore throat Respiratory: denies: Cough GI: reports: Nausea, Vomiting (today), Diarrhea (for 1-2 months) Skin: denies: Rash Neurologic: reports: Generalized weakness. 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 : None HEENT: None Psych: Anxiety Musculoskeletal: Scoliosis Derm: Eczema - Past Surgical History Past Surgical History: Yes General: Cholecystectomy HEENT: Tonsil/Adenoidectomy - Present Medications Home Medications: Ambulatory Orders Medication Instructions Recorded Confirmed Cetirizine [ZyrTEC] 10 mg PO DAILY 11/19/20 11/24/20 DULoxetine [Cymbalta] 30 mg PO DAILY 11/19/20 11/24/20 LORazepam [Ativan] PRN 11/19/20 Ondansetron Odt [Zofran] 4 mg TL Q6H PRN #10 tab 11/19/20 11/24/20 Diphenoxylate/Atropine [Lomotil] 1 each PO TID #20 tablet 11/24/20 Ondansetron Odt [Zofran] 4 mg TL Q6H PRN #20 tablet 11/24/20 - Allergies Allergies/Adverse Reactions: Allergies Allergy/AdvReac Type Severity Reaction Status Date / Time cephalexin [From Keflex] AdvReac Nausea Verified 11/24/20 18:15 - Social History Does the pt smoke?: No Smoking Status: Never smoker Does the pt drink ETOH?: No Does the pt have substance abuse?: No - Immunizations Immunizations are current?: Yes - POLST Patient has POLST: No PD ED PE NORMAL - Vitals Vital signs reviewed: Yes - General General: Alert and oriented X 3, No acute distress, Well developed/nourished - Neck Neck: Supple, no meningeal sign - Cardiac Cardiac: RRR, No murmur - Respiratory Respiratory: Clear bilaterally - Abdomen Abdomen: Normal bowel sounds, Soft, Non tender, Non distended, No organomegaly - Back Back: No CVA TTP - Derm Derm: Normal color, Warm and dry - Neuro Neuro: Alert and oriented X 3, No motor deficit, Normal speech Results - Vitals Vitals: Vital Signs - 24 hr 11/24/20 11/24/20 11/24/20 18:07 18:19 20:42 Temperature 36.5 C 36.9 C 36.7 C Heart Rate 86 86 Respiratory 18 18 Rate Blood Pressure 131/63 H 145/74 H O2 Saturation 100 100 Oxygen O2 Source Room air - Labs Labs: Laboratory Tests 11/24/20 19:54 Sodium 138 Potassium 3.3 L Chloride 100 L Carbon Dioxide 24 Anion Gap 14.0 H BUN 6 Creatinine 0.6 Estimated GFR (MDRD) 122 Glucose 98 Calcium 9.8 Magnesium 2.0 Total Bilirubin 1.3 H AST 158 H ALT 204 H Alkaline Phosphatase 146 H Total Protein 8.1 Albumin 4.6 Globulin 3.5 Albumin/Globulin Ratio 1.3 PD MEDICAL DECISION MAKING - ED course Complexity details: reviewed results (LFTs elevated so will get U/S to ensure not ductal process. Otherwise could related to vomiting. Also listed as potential side effect of the Cymbalta. ), re-evaluated patient, considered differential (possible side effects of the Cymbalta with N/V today. has had the dirrhea for 1-2 months. Awaiting stool studies. Consider IBD as well. ), d/w patient Departure - Departure Disposition: 01 Home, Self Care Clinical Impression: Chronic diarrhea, Nausea, Elevated liver enzymes Condition: Stable Record reviewed to determine appropriate education?: Yes Follow-Up: [facility] [Provider Group] Prescriptions: Diphenoxylate/Atropine [Lomotil] 1 each PO TID #20 tablet Ondansetron Odt [Zofran] 4 mg TL Q6H PRN #20 tablet PRN Reason: Nausea / Vomiting Comments: Regular diet, particularly starches/carbs and protein. Avoid milk products and legumes initially as may not digest as well initially. Imodium or Lomitil for diarrhea. Zofran for diarrhea. You do have some elevation of the liver enzymes. Your bile duct appears okay (not blocked). I presume the liver enzyme bump might be from the Duloxetine (as some of your other side effect symptoms). Stop the Duloxetine and discuss other meds instead with your primary care when you see them. The stool culture/studies from this morning have not all resulted as yet. Discharge Date/Time: 11/24/20 22:35
[2020-11-24] MEDS ORDERED: LACTATED RINGERS 1,000 ML IV STA (19:37)
[2020-11-24] MEDS ORDERED: DIPHENOX/ATROPINE 2.5/0.025 MG TABLET PO STA (19:38)
[2020-11-24] MEDS ORDERED: diphenhydrAMINE INJ 50 MG/ML VIAL IVP STA (19:38)
[2020-11-24 20:14] LABS: ALBUMIN 4.6 g/dL (3.2-5.5); ALBUMIN/GLOBULIN RATIO 1.3 (1.0-2.2); BILIRUBIN,TOTAL 1.3 mg/dL (0.2-1.0); CALCIUM 9.8 mg/dL (8.5-10.3); CREATININE 0.6 mg/dL (0.4-1.0); POTASSIUM 3.3 mmol/L (3.5-5.0); TOTAL PROTEIN 8.1 g/dL (6.7-8.2)
[2020-11-24 20:43] VITALS: BP 145/74
--- NOTE | 2020-11-25 08:40 | Ultrasound Report ---
PROCEDURE: Abdomen Limited INDICATIONS: nausea and loose stools; elevated LFTs today TECHNIQUE: Real-time focused scanning was performed of the abdomen, with image documentation. COMPARISON: None. FINDINGS: Liver measures 16.3 cm in length and demonstrates diffuse echogenic appearance. Gallbladde r surgically absent. No bile duct dilatation. The pancreas is grossly unremarkable where visualized. Right kidney measures 10.4 cm in length. There is right renal cyst measuring 1.4 x 1.1 x 1.1 cm with simple appearance. IVC patent. IMPRESSION: Right renal cyst Coarsely echogenic liver suggesting hepatic steatosis/diffuse hepatocellular disease. Please correlat e with LFTs. Findings are concordant with the preliminary study interpretation provided at the time of the study. Reviewed by: Jorge Howard MD on 11/25/2020 8:38 AM PST Approved by: Jorge Howard MD on 11/25/2020 8:38 AM [facility] Station ID: [id number]
== END 2020-11-24 22:35 | disposition home or self-care (01) ==
LOC: EDUNIT# → ED 18:05
DX: K52.9 Noninfective gastroenteritis and colitis, unspecified (principal); R11.0 Nausea; R74.8 Abnormal levels of other serum enzymes; N28.1 Cyst of kidney, acquired
CPT/HCPCS: 36415; 76705; 80053; 82652; 83735; 96361; 96374; A9270; J1200; J7120; 84443

== ENCOUNTER 2020-12-21 20:39 | Outpatient (CLI) | payer SELFPAY ==
--- OUTSIDE RECORDS SUMMARY | 2020-12-29 22:44 | EXTERNAL MEDICAL SUMMARY RPT | Continuity of Care Document ---
:1995 Demographics Phone Unavailable Preferred Language Unknown Marital Status Unknown Sabianist Affiliation Unknown Race Unknown Ethnic Group Unknown Author Organization [facility] Address [address] [place] [address] Phone Social History date description facility [phone]
== END 2020-12-21 20:40 ==
LOC: EMS 20:39
DX: F41.9 Anxiety disorder, unspecified (principal); R00.0 Tachycardia, unspecified

== ENCOUNTER 2021-03-04 08:00 | Outpatient (CLI) | payer OTHER ==
[2021-03-04 17:47] LABS: BILIRUBIN,URINE NEGATIVE (NEGATIVE); GLUCOSE, URINE (UA) NEGATIVE (NEGATIVE); KETONES,URINE (UA) NEGATIVE (NEGATIVE); LEUKOCYTE ESTERASE, URINE NEGATIVE (NEGATIVE); NITRITE,URINE NEGATIVE (NEGATIVE); OCCULT BLOOD,URINE NEGATIVE (NEGATIVE); PROTEIN,URINE NEGATIVE (NEGATIVE); UROBILINOGEN,URINE 0.2 (NORMAL) E.U./dL (NORMAL)
[2021-03-04 17:48] LABS: BASOPHILS # (AUTO) 0.1 10^3/uL (0.0-0.1); BASOPHILS % (AUTO) 0.4 %; EOSINOPHILS # (AUTO) 0.5 10^3/uL (0.0-0.7); EOSINOPHILS % (AUTO) 4.4 %; HCT - HEMATOCRIT 42.7 % (37.0-47.0); HGB - HEMOGLOBIN 13.9 g/dL (12.0-16.0); LYMPHOCYTES # (AUTO) 2.2 10^3/uL (1.5-3.5); LYMPHOCYTES % (AUTO) 19.3 %; MEAN CORPUSCULAR HEMOGLOBIN 29.6 pg (27.0-31.0); MEAN CORPUSCULAR HGB CONC 32.6 g/dL (32.0-36.0); MEAN CORPUSCULAR VOLUME 90.9 fL (81.0-99.0); MEAN PLATELET VOLUME 10.4 fL (7.9-10.8); MONOCYTES # (AUTO) 0.6 10^3/uL (0.0-1.0); MONOCYTES % (AUTO) 5.4 %; NEUTROPHILS # (AUTO) 7.8 10^3/uL (1.5-6.6); NEUTROPHILS % (AUTO) 70.1 %; PLT - PLATELET COUNT 366 10^3/uL (130-450); WHITE BLOOD COUNT 11.2 x10^3/uL (4.8-10.8)
[2021-03-04 17:49] LABS: CLARITY,URINE CLEAR (CLEAR)
[2021-03-04 17:51] LABS: BACTERIA,URINE Rare /HPF (None Seen); RBC,URINE 0-5 /HPF (0-5); SQUAMOUS EPITHELIAL CELL,UR RARE Squamous (<= Few); WBC,URINE 0-3 /HPF (0-5)
[2021-03-04 17:59] LABS: ALBUMIN 4.4 g/dL (3.2-5.5); ALBUMIN/GLOBULIN RATIO 1.2 (1.0-2.2); BILIRUBIN,TOTAL 0.8 mg/dL (0.2-1.0); CALCIUM 9.2 mg/dL (8.5-10.3); CREATININE 0.7 mg/dL (0.4-1.0); TOTAL PROTEIN 8.2 g/dL (6.7-8.2)
[2021-03-04 18:25] LABS: HCG,QUALITATIVE BLOOD NEGATIVE
== END 2021-03-04 23:59 | disposition home or self-care (01) ==
LOC: LAB.N 08:00
PROVIDERS: ATTEND Nurse Practitioner
DX: R19.7 Diarrhea, unspecified (principal)
CPT/HCPCS: 36415; 80053; 81001; 82150; 83690; 84703; 85025; 87086

== ENCOUNTER 2021-05-25 10:15 | Outpatient (CLI) | payer OTHER ==
[2021-05-25 21:46] LABS: BACTERIAL VAGINOSIS DNA NEGATIVE (NEGATIVE); CANDIDA GLABRATA DNA NEGATIVE (NEGATIVE); CANDIDA GROUP DNA NEGATIVE (NEGATIVE); CANDIDA KRUSEI DNA NEGATIVE (NEGATIVE); TRICHOMONAS VAGINALIS DNA NEGATIVE (NEGATIVE)
== END 2021-05-25 23:59 | disposition home or self-care (01) ==
LOC: LAB.N 10:15
PROVIDERS: ATTEND Nurse Practitioner
DX: L29.8 Other pruritus (principal)
CPT/HCPCS: 87661; 87801

== ENCOUNTER 2021-05-25 13:43 | Outpatient (CLI) | payer OTHER ==
[2021-05-25 14:33] VITALS: BP 112/71
--- NOTE | 2021-05-25 14:33 | SLEEP CARE CONSULTATION ---
Information from patient questionnaire entered by Yessica Stuart. I have reviewed and concur with the information entered by Yessica Stuart. This document represents the service I personally performed and the decisions made by me, Jazmin Cm ARNP. History of Present Illness Service Date and Time: 05/25/2021 1343 Reason for Visit: New patient Chief Complaint: reports: Insomnia, Unrefreshed sleep, Excessive daytime sleepiness, Frequent awakenings at night. denies: Snoring, Observed pauses in breathing Date of Onset: 3-4 months Usual bedtime: 9 pm Time it takes to fall asleep: 20-30 minutes Snores at night: No Observed to quit breathing while asleep: No Sleeps alone due to snoring: No Number of times waking at night: 2-3 Reasons for waking at night: reports: Gasping for air, Bathroom, Other (unknown reasons). denies: Choking, Snoring Toss, Turn, or Twitch while sleeping: Yes Recalls having dreams: Yes (has vivid dreams) Usually gets out of bed at: 6 am Feels refreshed in the morning: No Morning headache: Yes (depends; every other day and can last all day) Sleepy or fatigued during the day: Yes Ever fallen asleep while driving: No Takes day naps: Yes (sometimes; 1 x weekly) Dreams during day naps: Yes Prior sleep studies: No Additional HPI information: I had the pleasure of seeing DOMENICO MAR today regarding the possibility of her having a sleep disorder. Her current complaints are excessive daytime sleepiness, fatigue, frequent night awakenings, and insomnia. She has gotten very sick with Covid twice since October. She has gained 60-80 pounds since October. She is very tired all the time, sleepy during the day. She will wake up gasping for air several times a night. She thinks she is having a panic attack and forgetting to breathe. She does not snore, per her . He has not noticed if she has any pauses in her breathing when she is sleeping. She has to sleep with her mouth open or she feels she cannot breathe. She is having some heart palpitations for which she wore a Halter monitor. She has not got results from this yet. She feels that her blood pressure is going down and she can feel it when she stands quickly from a sitting position. She has been having issues with anxiety. She has difficulty swallowing daily. She saw an ENT who told her she needed to get a sleep study. She states she has had her tonsils and adenoids removed 10 years ago but the tonsils have regrown. - Parasomnia Symptoms Ever been unable to move upon waking from sleep: Yes (once or twice) Walks in sleep: No Talks in sleep: Yes Ever acted out dreams in sleep: Yes Ever felt weak in the knees when startled or emotional: No Bothered by creepy, crawly, restless sensations in legs: Yes (mostly at night; having tremors since Covid infection) Problems with memory or concentration: Yes (last 6 months; saying "gibberish" instead actual words) Subjective Initial [place] Sleepiness Scale score: 7 (in 2020) Past Medical History Past Medical History: reports: Anxiety, Other (2 covid infections since October 2020) Social History 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 Patient is and lives in [place]. Have you smoked in the past 12 months: No Alcohol use: Yes Alcohol amount and frequency: 1-2 drinks every few weeks Caffeine use: Yes Caffeine amount and frequency: 1 drink everyday Family History Family history of sleep disordered breathing: Yes Family Hx Sleep Apnea: Grandparent: Snoring, Sleep apnea - Untreated Allergies and Home Medications Drug allergies reviewed: Yes (Keflex, Cymbalta, Amoxicill/Penicillin) Home medication list reviewed: Yes (no daily medications) Allergy and home medication list: vitamins Review of Systems Cardiovascular: reports: palpitations, other (low blood pressure sometimes) Gastrointestinal: reports: difficulty swallowing Neurological: reports: headaches Psychiatric: reports: anxiety Ear/Nose/Throat: reports: tonsillectomy (removed 10 years ago, have regrown) Endocrine: reports: sluggishness Musculoskeletal: reports: joint pain, neck pain, back pain, joint swelling, muscle pain or cramping Physical Exam Blood Pressure: 112/71 Cuff size: wrist Heart Rate: 80 O2 Saturation: 99 Height: 5 ft Weight: 262 lb Body Mass Index: 51.1 BMI Classification: Morbidly Obese Neck circumference: 15 (inches) Mouth and throat: narrow oropharynx Soft palate: long Hard palate: normal Uvula: normal Uvula visualization: 100% Mallampati Class I Tongue: enlarged in size with teeth sullivan on lateral edges Tonsils: small Neck: normal w/o lymphadenopathy or thyromegaly Heart: regular rate and rhythm Lungs: clear bilaterally Impression and Plan 1. Suspected Obstructive Sleep Apnea-Hypopnea Syndrome, as suggested by a hi story of gasping or choking in sleep, morning headache, frequent awakening during the night, unrefreshed sleep, cognitive impairment, and excessive daytime sleepiness. Narrow oropharynx and obesity are common predisposing factors for obstructive sleep apnea-hypopnea syndrome. I recommend proceeding to polysomnography to confirm the diagnosis and to assess severity. If the patient has significant sleep disordered breathing, a manual CPAP titration study will also be performed to find the optimal treatment pressure. I informed the patient of what the sleep studies involve and after some discussion, obtained agreement to proceed. The pathophysiology of obstructive sleep apnea-hypopnea syndrome was discussed with the patient and health risks of cardiovascular and cerebrovascular disease if not treated. Risks of drowsy driving discussed in detail and patient advised to avoid long distance driving and to snout puller at the first sign of drowsiness. Patient agreed to plan. * Schedule polysomnography +- manual CPAP titration study and return in 1-2 weeks after the study to discuss result and initiate therapy. * Avoid long distance driving or driving when feeling sleepy. * Avoid alcohol, sedative and muscle relaxant around bedtime. * Attempt to lose weight. * Review instructions provided by trained office staff on how to prepare for the sleep study. * Return for follow-up after sleep study completed. Counseling Topics: Weight loss health impact Visit Type: In Office Time Spent with Patient (minutes): 31 Provider Statement: I spent 100% of the Face to Face Visit with the patient with greater than 50% spent counseling the patient and coordination of care.
== END 2021-05-25 13:44 | disposition home or self-care (01) ==
LOC: SC 13:43
PROVIDERS: ATTEND Nurse Practitioner Family
DX: G47.8 Other sleep disorders (principal); R51.9 Headache, unspecified; R41.89 Other symptoms and signs involving cognitive functions and awareness; G47.10 Hypersomnia, unspecified; E66.01 Morbid (severe) obesity due to excess calories; Z68.43 Body mass index [BMI] 50.0-59.9, adult
CPT/HCPCS: 99203; 99212

== ENCOUNTER 2021-07-05 18:20 | Outpatient (CLI) | payer OTHER | END 2021-07-05 18:21 | disposition critical access hospital (66) | LOC: EMS 18:20 | DX: R51.9 Headache, unspecified (principal); R11.0 Nausea | CPT/HCPCS: A0425; A0429 ==

== ENCOUNTER 2021-07-05 18:57 | Emergency (ER) | payer OTHER ==
--- NOTE | 2021-07-05 19:07 | ED Physician Documentation ---
History of Present Illness - Stated complaint Stated Complaint: Nausea - History obtained from History obtained from: Patient - Additonal information Additional information: 26-year-old woman with history of type 2 diabetes presents with a few days worth of feeling out of sorts and dizzy and out of body with nausea and occasional vomiting. It started when she lit some candles and basically was working on some schoolwork and was burning the scales in front of her self and then subsequently developed a headache which is not the worst of her life cough and nausea and occasional vomiting. She just feels out of it and slightly confused. She does have a history of migraines. She declines medication for the headache. Review of Systems Ten Systems: 10 systems reviewed and negative Constitutional: reports: Chills. 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 : None HEENT: None Psych: Anxiety Musculoskeletal: Scoliosis Derm: Eczema - Past Surgical History Past Surgical History: Yes General: Cholecystectomy HEENT: Tonsil/Adenoidectomy - Present Medications Home Medications: Ambulatory Orders Medication Instructions Recorded Confirmed Cetirizine [ZyrTEC] 10 mg PO DAILY 11/19/20 11/24/20 DULoxetine [Cymbalta] 30 mg PO DAILY 11/19/20 11/24/20 LORazepam [Ativan] PRN 11/19/20 Ondansetron Odt [Zofran] 4 mg TL Q6H PRN #10 tab 11/19/20 11/24/20 Diphenoxylate/Atropine [Lomotil] 1 each PO TID #20 tablet 11/24/20 Ondansetron Odt [Zofran] 4 mg TL Q6H PRN #20 tablet 11/24/20 Meclizine HCl [Motion Sickness] 25 mg PO Q6H PRN #10 tablet 07/05/21 - Allergies Allergies/Adverse Reactions: Allergies Allergy/AdvReac Type Severity Reaction Status Date / Time cephalexin [From Keflex] AdvReac Nausea Verified 07/05/21 19:02 - Social History Does the pt smoke?: No Smoking Status: Never smoker Does the pt drink ETOH?: No Does the pt have substance abuse?: No - Immunizations Immunizations are current?: Yes - POLST Patient has POLST: No PD ED PE NORMAL - Vitals Vital signs reviewed: Yes - General General: Alert and oriented X 3, No acute distress - HEENT HEENT: PERRL, EOMI - Neck Neck: Supple, no meningeal sign, No bony TTP - Cardiac Cardiac: RRR, No murmur - Respiratory Respiratory: No respiratory distress, Clear bilaterally - Abdomen Abdomen: Non tender - Back Back: No CVA TTP, No spinal TTP - Derm Derm: Normal color, Warm and dry - Extremities Extremities: No edema, No calf tenderness / cord - Neuro Neuro: Alert and oriented X 3, No motor deficit, No sensory deficit, Other (NIH stroke scale of 0) Eye Opening: Spontaneous Motor: Obeys Commands Verbal: Oriented GCS Score: 15 Results - Vitals Vitals: Vital Signs - 24 hr 07/05/21 07/05/21 19:02 19:07 Temperature 36.5 C 36.5 C Heart Rate 110 H 110 H Respiratory 16 16 Rate Blood Pressure 162/98 H 162/98 H O2 Saturation 96 96 Oxygen O2 Source Room air - EKG (time done) 1918 Rate: Rate (enter#) (105) Rhythm: Sinus tachycardia [place]: Normal Intervals: Normal [place] QRS: Normal, Low voltage Ischemia: Normal ST segments - Labs Labs: Laboratory Tests 07/05/21 07/05/21 07/05/21 19:21 19:51 19:51 WBC 11.1 H RBC 4.69 Hgb 13.1 Hct 40.0 MCV 85.3 MCH 27.9 MCHC 32.8 RDW 13.7 Plt Count 357 MPV 9.8 Neut # (Auto) 8.8 H Lymph # (Auto) 1.4 L [place] # (Auto) 0.5 Eos # (Auto) 0.3 Baso # (Auto) 0.0 Absolute Nucleated RBC 0.00 Nucleated RBC % 0.0 VBG Total Hgb VBG Oxyhemoglobin VBG Carboxyhemoglobin VBG Methemoglobin Sodium 135 Potassium 3.9 Chloride 100 L Carbon Dioxide 23 Anion Gap 12.0 BUN 10 Creatinine 0.7 Estimated GFR (MDRD) 101 Glucose 104 H Calcium 8.9 Urine Color YELLOW Urine Clarity HAZY Urine pH 5.5 Ur Specific [place] 1.015 Urine Protein NEGATIVE Urine Glucose (UA) NEGATIVE Urine Ketones NEGATIVE Urine Occult Blood MODERATE H Urine Nitrite NEGATIVE Urine Bilirubin NEGATIVE Urine Urobilinogen 0.2 (NORMAL) Ur Leukocyte Esterase NEGATIVE Urine RBC 0-5 Urine WBC 0-3 Ur Squamous Epith Cells FEW Squamous Urine Bacteria None Seen Ur Microscopic Review INDICATED Urine Culture Comments NOT INDICATED Urine HCG, Qual NEGATIVE 07/05/21 19:51 WBC RBC Hgb Hct MCV MCH MCHC RDW Plt Count MPV Neut # (Auto) Lymph # (Auto) [place] # (Auto) Eos # (Auto) Baso # (Auto) Absolute Nucleated RBC Nucleated RBC % VBG Total Hgb 7.4 L VBG Oxyhemoglobin 82 L VBG Carboxyhemoglobin 1.0 VBG Methemoglobin 0.3 Sodium Potassium Chloride Carbon Dioxide Anion Gap BUN Creatinine Estimated GFR (MDRD) Glucose Calcium Urine Color Urine Clarity Urine pH Ur Specific [place] Urine Protein Urine Glucose (UA) Urine Ketones Urine Occult Blood Urine Nitrite Urine Bilirubin Urine Urobilinogen Ur Leukocyte Esterase Urine RBC Urine WBC Ur Squamous Epith Cells Urine Bacteria Ur Microscopic Review Urine Culture Comments Urine HCG, Qual PD MEDICAL DECISION MAKING - ED course ED course: 26-year-old woman with Mnire's disease presents with kind of an out of body experience, feeling dizzy. She thinks it may be due to carbon monoxide and this was checked negative. She has having a headache with it but not thunderclap or worst of life. CT of the head looks unremarkable to me. Initially did not want any medications but after discussion later in the visit she would like to try meclizine. Departure - Departure Disposition: 01 Home, Self Care Clinical Impression: Vertigo, Headache Condition: Good Record reviewed to determine appropriate education?: Yes Instructions: Meclizine, ED Cephalgia Unspecified Prescriptions: Meclizine HCl [Motion Sickness] 25 mg PO Q6H PRN #10 tablet PRN Reason: Dizziness Comments: Call your doctor to arrange a follow-up appointment, make the next available appointment. In the interim, return anytime if worse or if new symptoms develop.
[2021-07-05 19:32] LABS: BILIRUBIN,URINE NEGATIVE (NEGATIVE); GLUCOSE, URINE (UA) NEGATIVE (NEGATIVE); KETONES,URINE (UA) NEGATIVE (NEGATIVE); LEUKOCYTE ESTERASE, URINE NEGATIVE (NEGATIVE); NITRITE,URINE NEGATIVE (NEGATIVE); OCCULT BLOOD,URINE MODERATE (NEGATIVE); PH,URINE 5.5 PH (5.0-7.5); PROTEIN,URINE NEGATIVE (NEGATIVE); UROBILINOGEN,URINE 0.2 (NORMAL) E.U./dL (NORMAL)
[2021-07-05 19:37] LABS: CLARITY,URINE HAZY (CLEAR)
[2021-07-05 19:43] LABS: HCG UR QUAL NEGATIVE
[2021-07-05 19:47] LABS: BACTERIA,URINE None Seen /HPF (None Seen); RBC,URINE 0-5 /HPF (0-5); SQUAMOUS EPITHELIAL CELL,UR FEW Squamous (<= Few); WBC,URINE 0-3 /HPF (0-5)
[2021-07-05 20:11] LABS: BASOPHILS % (AUTO) 0.3 %; EOSINOPHILS # (AUTO) 0.3 10^3/uL (0.0-0.7); EOSINOPHILS % (AUTO) 2.4 %; HGB - HEMOGLOBIN 13.1 g/dL (12.0-16.0); LYMPHOCYTES # (AUTO) 1.4 10^3/uL (1.5-3.5); LYMPHOCYTES % (AUTO) 12.5 %; MEAN CORPUSCULAR HEMOGLOBIN 27.9 pg (27.0-31.0); MEAN CORPUSCULAR HGB CONC 32.8 g/dL (32.0-36.0); MEAN CORPUSCULAR VOLUME 85.3 fL (81.0-99.0); MEAN PLATELET VOLUME 9.8 fL (7.9-10.8); MONOCYTES # (AUTO) 0.5 10^3/uL (0.0-1.0); MONOCYTES % (AUTO) 4.8 %; NEUTROPHILS # (AUTO) 8.8 10^3/uL (1.5-6.6); NEUTROPHILS % (AUTO) 79.5 %; PLT - PLATELET COUNT 357 10^3/uL (130-450); RED BLOOD COUNT 4.69 10^6/uL (4.20-5.40); RED CELL DISTRIBUTION WIDTH 13.7 % (12.0-15.0); WHITE BLOOD COUNT 11.1 x10^3/uL (4.8-10.8)
[2021-07-05 20:13] LABS: HEMOGLOBIN TOTAL, VENOUS WB 7.4 g/dL (12.0-18.0); METHEMOGLOBIN VENOUS 0.3 % (0-1.5)
[2021-07-05 20:20] LABS: CALCIUM 8.9 mg/dL (8.5-10.3); CREATININE 0.7 mg/dL (0.4-1.0); POTASSIUM 3.9 mmol/L (3.5-5.0)
[2021-07-05] MEDS ORDERED: MECLIZINE 12.5 MG TABLET PO STA (21:04)
--- NOTE | 2021-07-05 21:12 | CT Report ---
PROCEDURE: HEAD WO INDICATIONS: headache TECHNIQUE: Noncontrast 4.5 mm thick angled axial sections acquired from the foramen magnum to the vertex. For r adiation dose reduction, the following was used: automated exposure control, adjustment of mA and/or kV according to patient size. COMPARISON: None. FINDINGS: Image quality: Excellent. CSF spaces: Basal cisterns are patent. No extra-axial fluid collections. Ventricles are normal in size and shape. Brain: No midline shift. No intracranial masses or hemorrhage. [place]-white matter interface is norm al. Skull and face: Calvarium and visualized facial bones are intact, without suspicious lesions. Sinuses: Visualized sinuses and mastoids are clear. IMPRESSION: No acute intracranial abnormality. Reviewed by: Nahid Elizabeth on 07/05/2021 9:11 PM PDT Approved by: Nahid Elizabeth on 07/05/2021 9:11 PM PDT Station ID: [id number]
[2021-07-05 21:22] VITALS: BP 139/62
== END 2021-07-05 21:22 | disposition home or self-care (01) ==
LOC: EDUNIT# → ED 18:57
DX: H81.09 Meniere's disease, unspecified ear (principal); R51.9 Headache, unspecified; R00.0 Tachycardia, unspecified; E11.9 Type 2 diabetes mellitus without complications
CPT/HCPCS: 36415; 80048; 81001; 81003; 81025; 82375; 85025; 87086; 93005; 99284

== ENCOUNTER 2021-08-16 12:07 | Outpatient (CLI) | payer OTHER | END 2021-08-16 12:08 | disposition EMS.NT | LOC: EMS 12:07 | DX: R55 Syncope and collapse (principal) ==

== ENCOUNTER 2021-08-22 03:26 | Outpatient (CLI) | payer OTHER | END 2021-08-22 03:27 | disposition EMS.NT | LOC: EMS 03:26 | DX: F41.9 Anxiety disorder, unspecified (principal); R11.2 Nausea with vomiting, unspecified ==

== ENCOUNTER 2021-08-26 20:21 | Outpatient (CLI) | payer OTHER | END 2021-08-26 20:22 | disposition EMS.NT | LOC: EMS 20:21 | DX: R45.89 Other symptoms and signs involving emotional state (principal) ==

== ENCOUNTER 2021-12-05 03:14 | Emergency (ER) | payer OTHER ==
--- OUTSIDE RECORDS SUMMARY | 2021-12-05 03:56 | EXTERNAL MEDICAL SUMMARY RPT | Continuity of Care Document ---
:1995 Author Organization [facility] Address [address] [place] [address] Phone Care Team Providers Name Role Phone Cristal Ramírez Unavailable Unavailable Allergies No information. Encounters No information. Medications No information. Problems date description facility [id number] Benign intracranial hypertension [facility] Results No information.
[2021-12-05 04:00] LABS: BASOPHILS % (AUTO) 0.3 %; EOSINOPHILS # (AUTO) 0.3 10^3/uL (0.0-0.7); EOSINOPHILS % (AUTO) 3.2 %; HCT - HEMATOCRIT 39.9 % (37.0-47.0); HGB - HEMOGLOBIN 13.2 g/dL (12.0-16.0); LYMPHOCYTES # (AUTO) 1.6 10^3/uL (1.5-3.5); LYMPHOCYTES % (AUTO) 16.1 %; MEAN CORPUSCULAR HEMOGLOBIN 27.6 pg (27.0-31.0); MEAN CORPUSCULAR HGB CONC 33.1 g/dL (32.0-36.0); MEAN CORPUSCULAR VOLUME 83.3 fL (81.0-99.0); MEAN PLATELET VOLUME 9.4 fL (7.9-10.8); MONOCYTES # (AUTO) 0.7 10^3/uL (0.0-1.0); MONOCYTES % (AUTO) 6.8 %; NEUTROPHILS # (AUTO) 7.2 10^3/uL (1.5-6.6); NEUTROPHILS % (AUTO) 73.3 %; PLT - PLATELET COUNT 346 10^3/uL (130-450); RED BLOOD COUNT 4.79 10^6/uL (4.20-5.40); RED CELL DISTRIBUTION WIDTH 14.6 % (12.0-15.0); WHITE BLOOD COUNT 9.8 x10^3/uL (4.8-10.8)
[2021-12-05 04:15] LABS: ALBUMIN 3.9 g/dL (3.2-5.5); ALBUMIN/GLOBULIN RATIO 1.1 (1.0-2.2); BILIRUBIN,TOTAL 0.4 mg/dL (0.2-1.0); CALCIUM 8.6 mg/dL (8.5-10.3); CREATININE 0.7 mg/dL (0.4-1.0); POTASSIUM 3.4 mmol/L (3.5-5.0); TOTAL PROTEIN 7.4 g/dL (6.7-8.2)
[2021-12-05 06:20] VITALS: BP 105/65
[2021-12-05] MEDS ORDERED: DEXAMETHASONE 10 MG/ML VIAL PO STA (08:17)
[2021-12-05] MEDS ORDERED: CETIRIZINE 10 MG TABLET PO STA (08:17)
[2021-12-05] MEDS ORDERED: CHERRY SYRUP 10 ML UDC PO ONE (08:17)
--- NOTE | 2021-12-05 08:45 | ED Physician Documentation ---
PD HPI HEENT - Stated complaint Stated Complaint: DIZZINESS,SOA/DIFF BREATHING - Chief complaint Chief Complaint: Neuro - History obtained from History obtained from: Patient - History of Present Illness Timing - onset: How many days ago (several) Timing - duration: Days Timing - details: Gradual onset, Still present, Waxing and waning Location: Sinuses (feeling of pressure in frontal and nasal area, with clear rhinorrhea and fullness in ears. Some lightheaded and headache, but feels that is more like the THOMAS being evaluated for possible pseudotumor cerebri. Has seen Neuro and scheduled for LP eval January 11(?).) Associated symptoms: Congestion, Rhinorrhea, Headache. No: Fever, Facial swelling, Cough Similar symptoms before: Diagnosis (has had similar with sinuses in the past and would take cetirizine and flonase but has not taken them due to new med of DIamox and Dx of psuedotumor. Recent Dx of hypothyroid which might explain weight gain over past year. She hopes to lose weight with now on thyroid supplement.) Recently seen: Clinic Review of Systems Constitutional: denies: Fever, Chills Nose: reports: Rhinorrhea / runny nose, Sinus pressure / pain Throat: denies: Sore throat Respiratory: reports: Dyspnea. denies: Cough Skin: denies: Rash, Lesions Musculoskeletal: denies: Neck pain, Back pain Neurologic: reports: Headache. denies: Focal weakness, Numbness, Altered mental status, Head injury PD PAST MEDICAL HISTORY - Past Medical History Past Medical History: Yes Cardiovascular: None Respiratory: None Neuro: Other Endocrine/Autoimmune: HyPOthyroidism GI: None DROP WIRER: None : None HEENT: None Psych: Anxiety Musculoskeletal: Scoliosis Derm: Eczema Other Past Medical History: Pseudo tumor Cerebri - Past Surgical History Past Surgical History: Yes General: Cholecystectomy HEENT: Tonsil/Adenoidectomy - Present Medications Home Medications: Ambulatory Orders Medication Instructions Recorded Confirmed Cetirizine [ZyrTEC] 10 mg PO DAILY #30 tablet 12/05/21 Fluticasone Propionate 2 spr NS DAILY 30 Days #1 bottle 12/05/21 Levothyroxine Sodium 88 mcg PO DAILY 12/05/21 12/05/21 [Levothyroxine] acetaZOLAMIDE ER [Diamox ER] 500 mg PO BID 12/05/21 12/05/21 dexAMETHasone [Decadron] 4 mg PO DAILY #5 tablet 12/05/21 - Allergies Allergies/Adverse Reactions: Allergies Allergy/AdvReac Type Severity Reaction Status Date / Time amoxicillin Allergy Unknown Verified 12/05/21 05:31 duloxetine [From Cymbalta] Allergy Edema Verified 12/05/21 05:32 Penicillins Allergy Unknown Verified 12/05/21 05:32 cephalexin [From Keflex] AdvReac Nausea Verified 12/05/21 03:30 - Social History Does the pt smoke?: No Smoking Status: Never smoker Does the pt drink ETOH?: No Does the pt have substance abuse?: No - Immunizations Immunizations are current?: Yes - POLST Patient has POLST: No PD ED PE NORMAL - Vitals Vital signs reviewed: Yes - General General: Alert and oriented X 3, No acute distress, Well developed/nourished - HEENT HEENT: Moist mucous membranes, Pharynx benign. No: Ears normal (no redness nor swelling but some appearance of fluid behind the TMs. ) - Neck Neck: Supple, no meningeal sign, No adenopathy - Cardiac Cardiac: RRR, No murmur - Respiratory Respiratory: Clear bilaterally - Derm Derm: Normal color, Warm and dry - Neuro Neuro: house coordinator 2-12 intact Results - Vitals Vitals: Oxygen O2 Source Room air - Labs Labs: Laboratory Tests 12/05/21 12/05/21 12/05/21 03:55 03:55 03:55 WBC 9.8 RBC 4.79 Hgb 13.2 Hct 39.9 MCV 83.3 MCH 27.6 MCHC 33.1 RDW 14.6 Plt Count 346 MPV 9.4 Neut # (Auto) 7.2 H Lymph # (Auto) 1.6 [place] # (Auto) 0.7 Eos # (Auto) 0.3 Baso # (Auto) 0.0 Absolute Nucleated RBC 0.00 Nucleated RBC % 0.0 Sodium 134 L Potassium 3.4 L Chloride 105 Carbon Dioxide 20 L Anion Gap 9.0 BUN 13 Creatinine 0.7 Estimated GFR (MDRD) 101 Glucose 114 H Calcium 8.6 Total Bilirubin 0.4 AST 22 ALT 43 Alkaline Phosphatase 130 H Total Protein 7.4 Albumin 3.9 Globulin 3.5 Albumin/Globulin Ratio 1.1 Lipase 34 TSH 0.17 L Free T4 12/05/21 03:55 WBC RBC Hgb Hct MCV MCH MCHC RDW Plt Count MPV Neut # (Auto) Lymph # (Auto) [place] # (Auto) Eos # (Auto) Baso # (Auto) Absolute Nucleated RBC Nucleated RBC % Sodium Potassium Chloride Carbon Dioxide Anion Gap BUN Creatinine Estimated GFR (MDRD) Glucose Calcium Total Bilirubin AST ALT Alkaline Phosphatase Total Protein Albumin Globulin Albumin/Globulin Ratio Lipase TSH Free T4 0.97 PD MEDICAL DECISION MAKING - ED course Complexity details: considered differential (patient had been waiting from overnight shift, and I saw her on the very start of my shift. Mainly having what sounds like sinus pressure and drainage. Does not sound bacterial. She is being worked up for NPH and is concerned about med interactions with new Diamox and Dx. ), d/w patient ED course: Epocrates interaction check showed no interactions with the diamox, ceterizine and flonase/decadron, and UpToDate says steroids can be used in treatment of pseudotumor cerebri, so seems okay to treat the allergic sinusitis as commonly treated. Departure - Departure Disposition: 01 Home, Self Care Clinical Impression: Sinus pressure, Low serum potassium Condition: Stable Record reviewed to determine appropriate education?: Yes Instructions: ED Diet High Potassium Follow-Up: LUIS BUTT MD [Primary Care Provider] - Prescriptions: dexAMETHasone [Decadron] 4 mg PO DAILY #5 tablet Fluticasone Propionate 2 spr NS DAILY 30 Days #1 bottle Cetirizine [ZyrTEC] 10 mg PO DAILY #30 tablet Comments: I looked up the use of the fluticasone and cetirizine along with Diamox and there is no notable interactions. Your symptoms sound likely to be sinus related. We can treat with dexamethasone oral steroid for the next 3 to 5 days and resume your prior cetirizine and fluticasone. Your potassium level is on the low end of normal so be sure to have a potassium rich diet in lieu of using the Diamox which is a little bit of a diuretic. Continue with your Diamox. Contact your neurosurgeon office this coming week for when they want you to taper and stop it prior to your lumbar puncture. It likely will be just a few days before. I sent your prescriptions to [facility] in [place]. Discharge Date/Time: 12/05/21 08:56
== END 2021-12-05 08:56 | disposition home or self-care (01) ==
LOC: ED 03:14
DX: J34.89 Other specified disorders of nose and nasal sinuses (principal); E87.6 Hypokalemia
CPT/HCPCS: 36415; 80053; 83690; 84439; 84443; 85025; 99282; 99284; A9270

== ENCOUNTER 2021-12-08 16:31 | Outpatient (CLI) | payer OTHER | END 2021-12-08 16:32 | disposition critical access hospital (66) | LOC: EMS 16:31 | DX: R00.2 Palpitations (principal); R51.9 Headache, unspecified | CPT/HCPCS: A0425; A0429 ==

== ENCOUNTER 2021-12-08 16:47 | Emergency (ER) | payer OTHER ==
--- OUTSIDE RECORDS SUMMARY | 2021-12-08 17:03 | EXTERNAL MEDICAL SUMMARY RPT | Continuity of Care Document ---
:1995 Author Organization [facility] Address [address] [place] [address] Phone Care Team Providers Name Role Phone Cristal Ramírez Unavailable Unavailable Allergies No information. Encounters No information. Medications No information. Problems date description facility [id number] Benign intracranial hypertension [facility] Results No information.
--- NOTE | 2021-12-08 17:32 | ED Physician Documentation ---
PD HPI CHEST PAIN - Stated complaint Stated Complaint: PALPITATIONS - Chief complaint Chief Complaint: Cardiac - History obtained from History obtained from: Patient, EMS - Additional information Additional information: 26 yo female with hx hyperthyroid and idiopathic intracranial HTN and meniere's. Takes acetazolamide 500mg PO BID. Here for palpiatations x 3 days. Brief fluttering sensation with non radiating chest pressure. Here a few days ago for a variety of sx and started dexamethasone for sinus sx. PD PAST MEDICAL HISTORY - Past Medical History Past Medical History: Yes Cardiovascular: None Respiratory: None Neuro: Headaches, Other Endocrine/Autoimmune: HyPOthyroidism GI: None [employer] [employer]: Miscarriage(s) : None HEENT: None Psych: Anxiety Musculoskeletal: Scoliosis Derm: Eczema - Past Surgical History Past Surgical History: Yes General: Cholecystectomy HEENT: Tonsil/Adenoidectomy - Present Medications Home Medications: Ambulatory Orders Medication Instructions Recorded Confirmed Cetirizine [ZyrTEC] 10 mg PO DAILY #30 tablet 12/05/21 12/08/21 Fluticasone Propionate 2 spr NS DAILY 30 Days #1 bottle 12/05/21 12/08/21 Levothyroxine Sodium 88 mcg PO DAILY 12/05/21 12/08/21 [Levothyroxine] acetaZOLAMIDE ER [Diamox ER] 500 mg PO BID 12/05/21 12/08/21 - Allergies Allergies/Adverse Reactions: Allergies Allergy/AdvReac Type Severity Reaction Status Date / Time amoxicillin Allergy Unknown Verified 12/08/21 16:55 duloxetine [From Cymbalta] Allergy Edema Verified 12/08/21 16:55 Penicillins Allergy Unknown Verified 12/08/21 16:55 cephalexin [From Keflex] AdvReac Nausea Verified 12/08/21 16:55 - Social History Does the pt smoke?: No Smoking Status: Never smoker Does the pt drink ETOH?: No Does the pt have substance abuse?: No - Immunizations Immunizations are current?: No Immunizations: Other immun not current - POLST Patient has POLST: No PD ED PE NORMAL - Vitals Vital signs reviewed: Yes - General General: Alert and oriented X 3, No acute distress - HEENT HEENT: PERRL, EOMI - Neck Neck: Supple, no meningeal sign, No bony TTP - Cardiac Cardiac: RRR (occ extrasystoles), No murmur - Respiratory Respiratory: No respiratory distress, Clear bilaterally - Abdomen Abdomen: Non tender - Back Back: No CVA TTP, No spinal TTP - Derm Derm: Normal color, Warm and dry - Extremities Extremities: No edema, No calf tenderness / cord - Neuro Neuro: Alert and oriented X 3, Normal speech Results - Vitals Vitals: Vital Signs - 24 hr 12/08/21 12/08/21 16:56 18:27 Temperature 36.8 C Heart Rate 94 78 Respiratory 20 19 Rate Blood Pressure 157/87 H 133/70 H O2 Saturation 100 98 Oxygen O2 Source Room air - EKG (time done) 1649 Rate: Rate (enter#) (103) Rhythm: Sinus tachycardia [place]: Normal Intervals: Normal [place] QRS: Normal Ischemia: Normal ST segments - Labs Labs: Laboratory Tests 12/08/21 12/08/21 12/08/21 17:22 17:22 17:30 Sodium 136 Potassium 3.4 L Chloride 104 Carbon Dioxide 23 Anion Gap 9.0 BUN 14 Creatinine 1.1 H Estimated GFR (MDRD) 60 L Glucose 96 Calcium 8.5 Magnesium 2.1 TSH 0.22 L PD MEDICAL DECISION MAKING - ED course ED course: 26-year-old woman presents for the evaluation of palpitations. On the monitor they closely correspond to PVCs which she is symptomatic with while here. She is on steroids having stopped yesterday but given that it was dexamethasone this still may be contributing and her potassium is mildly low repleted orally. Departure - Departure Disposition: 01 Home, Self Care Clinical Impression: PVCs (premature ventricular contractions) Condition: Good Record reviewed to determine appropriate education?: Yes Instructions: Premature Ventricular Contract About Comments: You are seen today for palpitations which on the monitor corresponded to PVCs maybe once or twice a minute. These are generally not dangerous and my suspicion is they happened because of a combination of your steroids wearing off and a mildly low potassium. Continue to not take the dexamethasone and I suspect this will be gone in the next day or 2. Return for new or worsening symptoms. Continue your follow-up as planned for work-up of idiopathic intracranial hypertension. Discharge Date/Time: 12/08/21 18:29
[2021-12-08 17:37] LABS: CALCIUM 8.5 mg/dL (8.5-10.3); CREATININE 1.1 mg/dL (0.4-1.0); POTASSIUM 3.4 mmol/L (3.5-5.0)
[2021-12-08] MEDS ORDERED: POTASSIUM CHLORIDE 20 MEQ TABLET PO STA (18:16)
[2021-12-08] MEDS ORDERED: IBUPROFEN 800 MG TABLET PO STA (18:22)
[2021-12-08 18:28] VITALS: BP 133/70
== END 2021-12-08 18:29 | disposition home or self-care (01) ==
LOC: EDUNIT# → ED 16:47
DX: I49.3 Ventricular premature depolarization (principal); R00.0 Tachycardia, unspecified
CPT/HCPCS: 36415; 80048; 83735; 84443; 93005; 99281; 99283; A9270

== ENCOUNTER 2022-01-25 06:45 | Outpatient (CLI) | payer OTHER | END 2022-01-25 06:46 | disposition left against medical advice (07) | LOC: EMS 06:45 | DX: R00.2 Palpitations (principal); R45.1 Restlessness and agitation ==

== ENCOUNTER 2022-02-10 00:33 | Emergency (ER) | payer OTHER ==
--- OUTSIDE RECORDS SUMMARY | 2022-02-10 00:42 | EXTERNAL MEDICAL SUMMARY RPT | Continuity of Care Document ---
:1995 Author Organization [facility] Address [address] [place] [address] Phone Care Team Providers Name Role Phone Raímrez Unavailable Unavailable Allergies No information. Encounters No information. Medications No information. Problems date description facility [id number] Benign intracranial hypertension [facility] Results No information.
--- NOTE | 2022-02-10 01:00 | ED Physician Documentation ---
History of Present Illness - Stated complaint Stated Complaint: CHILLS/NAUSEA - Chief complaint Chief Complaint: General - Additonal information Additional information: Patient is a 27-year-old female with known history of pseudotumor cerebri presenting to the emergency department with complaints of nausea, vomiting, chills, paresthesias around her lips as well as a abnormal sensorium in her body which she describes as a "flushing sensation" that she sullivan. Reports currently takes Diamox for pseudotumor cerebri. Does state that she has had headaches but denies any headache at this time. Denies any visual disturbance. Reports that she has had many symptoms similar to this in the past however they have become more prominent over the course of the evening which is what prompted her to come in to the emergency department. States that the numbness around her lips is new. Also reports that she was having some abdominal pain yesterday. Review of Systems Ten Systems: 10 systems reviewed and negative Constitutional: reports: Chills, Myalgias, Fatigue, Sweats. denies: Fever Eyes: denies: Loss of vision, Decreased vision, Photophobia, Discharge, Irritation, Reviewed and negative Ears: denies: Loss of hearing, Ear pain, Drainage/discharge, Tinnitus/ringing, Foreign body, Reviewed and negative Nose: denies: Rhinorrhea / runny nose, Congestion, Epistaxis, Foreign Body, Reviewed and negative Throat: denies: Dental pain / toothache, Oral lesions / sores, Swollen tonsils Cardiac: denies: Chest pain / pressure, Palpitations, Pedal edema, Calf pain Respiratory: denies: Dyspnea, Cough GI: reports: Abdominal Pain, Nausea, Vomiting. denies: Abdominal Swelling, Constipation, Diarrhea, Hematemesis, Bloody / black stool : denies: Dysuria Skin: denies: Rash Musculoskeletal: denies: Neck pain, Back pain Neurologic: denies: Generalized weakness PD PAST MEDICAL HISTORY - Past Medical History Past Medical History: Yes Cardiovascular: None Respiratory: None Neuro: Headaches, Other Endocrine/Autoimmune: HyPOthyroidism GI: None SET UP AND CHARGER: Miscarriage(s) : None HEENT: None Psych: Anxiety Musculoskeletal: Scoliosis Derm: Eczema - Past Surgical History Past Surgical History: Yes General: Cholecystectomy HEENT: Tonsil/Adenoidectomy - Present Medications Home Medications: Ambulatory Orders Medication Instructions Recorded Confirmed Levothyroxine Sodium 50 mcg PO DAILY 12/05/21 02/10/22 [Levothyroxine] acetaZOLAMIDE ER [Diamox ER] 500 mg PO DAILY 12/05/21 02/10/22 - Allergies Allergies/Adverse Reactions: Allergies Allergy/AdvReac Type Severity Reaction Status Date / Time amoxicillin Allergy Unknown Verified 02/10/22 00:54 duloxetine [From Cymbalta] Allergy Edema Verified 02/10/22 00:54 Iodinated Contrast Media Allergy Hives Verified 02/10/22 03:17 Penicillins Allergy Unknown Verified 02/10/22 00:54 cephalexin [From Keflex] AdvReac Nausea Verified 02/10/22 00:54 - Social History Does the pt smoke?: No Smoking Status: Never smoker Does the pt drink ETOH?: No Does the pt have substance abuse?: No - Immunizations Immunizations are current?: No Immunizations: Other immun not current - POLST Patient has POLST: No PD ED PE NORMAL - General General: Alert and oriented X 3 - HEENT HEENT: Atraumatic, PERRL, EOMI, Ears normal, Moist mucous membranes, Pharynx benign, Dentition benign - Neck Neck: Supple, no meningeal sign, No bony TTP, No adenopathy, No JVD - Cardiac Cardiac: RRR, No gallop, Strong equal pulses - Respiratory Respiratory: No respiratory distress, Clear bilaterally - Abdomen Abdomen: Normal bowel sounds, Soft, Non tender, Non distended, No organomegaly - Female Female : Deferred - Rectal Rectal: Deferred - Back Back: No CVA TTP - Derm Derm: Normal color - Extremities Extremities: No deformity, No tenderness to palpate, No edema, No calf tenderness / cord - Neuro Neuro: Alert and oriented X 3, hide inspector 2-12 intact, No motor deficit, No sensory deficit, Normal speech - Psych Psych: Normal mood Results - Vitals Vitals: Vital Signs - 24 hr 02/10/22 02/10/22 00:50 03:27 Temperature 36.8 C Heart Rate 104 H 95 Respiratory 17 18 Rate Blood Pressure 147/85 H 147/71 H O2 Saturation 98 100 Oxygen O2 Source Room air - Labs Labs: Laboratory Tests 02/10/22 02/10/22 02/10/22 01:35 01:35 01:35 WBC 10.6 RBC 4.95 Hgb 13.5 Hct 40.9 MCV 82.6 MCH 27.3 MCHC 33.0 RDW 14.5 Plt Count 381 MPV 9.5 Neut # (Auto) 8.1 H Lymph # (Auto) 1.6 [place] # (Auto) 0.6 Eos # (Auto) 0.4 Baso # (Auto) 0.0 Absolute Nucleated RBC 0.00 Nucleated RBC % 0.0 PT 11.9 INR 1.1 Sodium 138 Potassium 3.5 Chloride 103 Carbon Dioxide 24 Anion Gap 11.0 BUN 11 Creatinine 0.7 Estimated GFR (MDRD) 100 Glucose 119 H Lactic Acid Calcium 9.5 Total Bilirubin 0.5 AST 30 ALT 58 Alkaline Phosphatase 137 H Total Creatine Kinase 59 Total Protein 7.4 Albumin 4.0 Globulin 3.4 Albumin/Globulin Ratio 1.2 Lipase 34 TSH HCG, Quant Urine Color Urine Clarity Urine pH Ur Specific [place] Urine Protein Urine Glucose (UA) Urine Ketones Urine Occult Blood Urine Nitrite Urine Bilirubin Urine Urobilinogen Ur Leukocyte Esterase Ur Microscopic Review Urine Culture Comments Nasal Adenovirus (PCR) Nasal B. parapertussis DNA (PCR) Nasal Coronavir 229E PCR Nasal Coronavir HKU1 PCR Nasal Coronavir NL63 PCR Nasal Coronavir OC43 PCR Nasal Enterovir/Rhinovir PCR Nasal Influenza B PCR Nasal Influenza A PCR Nasal Parainfluen 1 PCR Nasal Parainfluen 2 PCR Nasal Parainfluen 3 PCR Nasal Parainfluen 4 PCR Nasal RSV (PCR) Nasal B.pertussis DNA PCR Nasal C.pneumoniae (PCR) [place]ais[place] Human Metapneumo PCR Nasal M.pneumoniae (PCR) Nasal SARS-CoV-2 (PCR) Ethyl Alcohol < 5.0 02/10/22 02/10/22 02/10/22 01:35 01:35 01:35 WBC RBC Hgb Hct MCV MCH MCHC RDW Plt Count MPV Neut # (Auto) Lymph # (Auto) [place] # (Auto) Eos # (Auto) Baso # (Auto) Absolute Nucleated RBC Nucleated RBC % PT INR Sodium Potassium Chloride Carbon Dioxide Anion Gap BUN Creatinine Estimated GFR (MDRD) Glucose Lactic Acid 1.3 Calcium Total Bilirubin AST ALT Alkaline Phosphatase Total Creatine Kinase Total Protein Albumin Globulin Albumin/Globulin Ratio Lipase TSH 0.97 HCG, Quant < 0.60 Urine Color Urine Clarity Urine pH Ur Specific [place] Urine Protein Urine Glucose (UA) Urine Ketones Urine Occult Blood Urine Nitrite Urine Bilirubin Urine Urobilinogen Ur Leukocyte Esterase Ur Microscopic Review Urine Culture Comments Nasal Adenovirus (PCR) Nasal B. parapertussis DNA (PCR) Nasal Coronavir 229E PCR Nasal Coronavir HKU1 PCR Nasal Coronavir NL63 PCR Nasal Coronavir OC43 PCR Nasal Enterovir/Rhinovir PCR Nasal Influenza B PCR Nasal Influenza A PCR Nasal Parainfluen 1 PCR Nasal Parainfluen 2 PCR Nasal Parainfluen 3 PCR Nasal Parainfluen 4 PCR Nasal RSV (PCR) Nasal B.pertussis DNA PCR Nasal C.pneumoniae (PCR) Faisal Human Metapneumo PCR Nasal M.pneumoniae (PCR) Nasal SARS-CoV-2 (PCR) Ethyl Alcohol 02/10/22 02/10/22 02:35 03:15 WBC RBC Hgb Hct MCV MCH MCHC RDW Plt Count MPV Neut # (Auto) Lymph # (Auto) [place] # (Auto) Eos # (Auto) Baso # (Auto) Absolute Nucleated RBC Nucleated RBC % PT INR Sodium Potassium Chloride Carbon Dioxide Anion Gap BUN Creatinine Estimated GFR (MDRD) Glucose Lactic Acid Calcium Total Bilirubin AST ALT Alkaline Phosphatase Total Creatine Kinase Total Protein Albumin Globulin Albumin/Globulin Ratio Lipase TSH HCG, Quant Urine Color YELLOW Urine Clarity CLEAR Urine pH 5.5 Ur Specific [place] 1.015 Urine Protein NEGATIVE Urine Glucose (UA) NEGATIVE Urine Ketones NEGATIVE Urine Occult Blood NEGATIVE Urine Nitrite NEGATIVE Urine Bilirubin NEGATIVE Urine Urobilinogen 0.2 (NORMAL) Ur Leukocyte Esterase NEGATIVE Ur Microscopic Review NOT INDICATED Urine Culture Comments NOT INDICATED Nasal Adenovirus (PCR) NOT DETECTED Nasal B. parapertussis DNA (PCR) NOT DETECTED Nasal Coronavir 229E PCR NOT DETECTED Nasal Coronavir HKU1 PCR NOT DETECTED Nasal Coronavir NL63 PCR NOT DETECTED Nasal Coronavir OC43 PCR NOT DETECTED Nasal Enterovir/Rhinovir PCR NOT DETECTED Nasal Influenza B PCR NOT DETECTED Nasal Influenza A PCR NOT DETECTED Nasal Parainfluen 1 PCR NOT DETECTED Nasal Parainfluen 2 PCR NOT DETECTED Nasal Parainfluen 3 PCR NOT DETECTED Nasal Parainfluen 4 PCR NOT DETECTED Nasal RSV (PCR) NOT DETECTED Nasal B.pertussis DNA PCR NOT DETECTED Nasal C.pneumoniae (PCR) NOT DETECTED Faisal Human Metapneumo PCR NOT DETECTED Nasal M.pneumoniae (PCR) NOT DETECTED Nasal SARS-CoV-2 (PCR) NOT DETECTED Ethyl Alcohol PD MEDICAL DECISION MAKING - ED course Complexity details: reviewed results, re-evaluated patient, d/w patient ED course: Patient is a 27-year-old female with known history of pseudotumor cerebri on Diamox as well as hypothyroidism on aAbnormalThyroid supplement presenting to the emergency department with multiple chief complaints including but not limited to chills, nausea, vomiting, facial paresthesias, body sensations, abdominal pain. Afebrile, hemodynamically stable on arrival to the emergency department. Physical exam demonstrated a somewhat anxious appearing obese female. There was no appreciable neurologic deficit on exam. She denied any active headache or visual disturbance that would be concerning for an acute episode of increased intercranial pressure. She had clear respirations in all lung krishnan and a soft benign abdominal exam with no specific right upper quadrant, right lower quadrant or other focal area of tenderness. I did obtain comprehensive labs which were all within normal limits or nonactionable. I did obtain an EKG which was negative for acute or significant finding. Patient was sent for imaging of the CT head and abdomen which were both benignWith the exception of some fatty steatosis, likely secondary to patient's body habitus noted on the CT scan of the abdomen and pelvis.. Of note after receiving IV contrast patient did endorse for eye itching and sneezing. She was evaluated shortly after and there is no indication of severe significant allergic reaction however I have added iodine contrast media to her list of allergies. She received dose Decadron and Benadryl here in the emergency department. She was observed in the emergency department for several hours, reevaluated on multiple occasions and found to be resting comfortably in no acute distress. At this time I will discharge for follow-up with her primary care doctor. Othe rwise clear return precautions and follow-up instructions were given prior to discharge.
[2022-02-10] MEDS ORDERED: KETOROLAC 30 MG/ML VIAL IVP STA (01:24)
[2022-02-10 01:52] LABS: BASOPHILS % (AUTO) 0.4 %; EOSINOPHILS # (AUTO) 0.4 10^3/uL (0.0-0.7); EOSINOPHILS % (AUTO) 3.3 %; HCT - HEMATOCRIT 40.9 % (37.0-47.0); HGB - HEMOGLOBIN 13.5 g/dL (12.0-16.0); LYMPHOCYTES # (AUTO) 1.6 10^3/uL (1.5-3.5); LYMPHOCYTES % (AUTO) 14.8 %; MEAN CORPUSCULAR HEMOGLOBIN 27.3 pg (27.0-31.0); MEAN CORPUSCULAR VOLUME 82.6 fL (81.0-99.0); MEAN PLATELET VOLUME 9.5 fL (7.9-10.8); MONOCYTES # (AUTO) 0.6 10^3/uL (0.0-1.0); MONOCYTES % (AUTO) 5.5 %; NEUTROPHILS # (AUTO) 8.1 10^3/uL (1.5-6.6); NEUTROPHILS % (AUTO) 75.6 %; PLT - PLATELET COUNT 381 10^3/uL (130-450); RED BLOOD COUNT 4.95 10^6/uL (4.20-5.40); RED CELL DISTRIBUTION WIDTH 14.5 % (12.0-15.0); WHITE BLOOD COUNT 10.6 x10^3/uL (4.8-10.8)
[2022-02-10 02:00] LABS: INR 1.1 (0.8-1.2); PT - PROTHROMBIN TIME 11.9 secs (9.9-12.6)
[2022-02-10 02:03] LABS: ALBUMIN/GLOBULIN RATIO 1.2 (1.0-2.2); ALKALINE PHOSPHATASE 137 IU/L (42-121); ALT ALANINE AMINOTRANSFERASE 58 IU/L (10-60); AST ASPARTATE AMINOTRANSFERASE 30 IU/L (10-42); BILIRUBIN,TOTAL 0.5 mg/dL (0.2-1.0); BUN - BLOOD UREA NITROGEN 11 mg/dL (6-20); CALCIUM 9.5 mg/dL (8.5-10.3); CARBON DIOXIDE - CO2 24 mmol/L (21-32); CHLORIDE 103 mmol/L (101-111); CK- CREATINE KINASE 59 IU/L (22-269); CREATININE 0.7 mg/dL (0.4-1.0); ETOH - ETHANOL < 5.0 mg/dL; GFR - MDRD 100 (>89); GLUCOSE 119 mg/dL (70-100); LIPASE 34 U/L (22-51); POTASSIUM 3.5 mmol/L (3.5-5.0); SODIUM 138 mmol/L (135-145); TOTAL PROTEIN 7.4 g/dL (6.7-8.2)
[2022-02-10] MEDS ORDERED: IOVERSOL 320 100 ML VIAL IVP ONE ×2 (02:44→03:17)
[2022-02-10 02:56] LABS: BILIRUBIN,URINE NEGATIVE (NEGATIVE); GLUCOSE, URINE (UA) NEGATIVE (NEGATIVE); KETONES,URINE (UA) NEGATIVE (NEGATIVE); LEUKOCYTE ESTERASE, URINE NEGATIVE (NEGATIVE); NITRITE,URINE NEGATIVE (NEGATIVE); OCCULT BLOOD,URINE NEGATIVE (NEGATIVE); PH,URINE 5.5 PH (5.0-7.5); PROTEIN,URINE NEGATIVE (NEGATIVE); UROBILINOGEN,URINE 0.2 (NORMAL) E.U./dL (NORMAL)
[2022-02-10 02:58] LABS: CLARITY,URINE CLEAR (CLEAR)
[2022-02-10] MEDS ORDERED: diphenhydrAMINE INJ 50 MG/ML VIAL IVP STA (03:08)
[2022-02-10] MEDS ORDERED: DEXAMETHASONE 10 MG/ML VIAL IVP STA (03:08)
[2022-02-10 03:28] VITALS: BP 147/71
[2022-02-10 04:14] LABS: CORONAVIRUS 229E-RESP PCR NOT DETECTED; CORONAVIRUS HKU1-RESP PCR NOT DETECTED
[2022-02-10 04:15] LABS: B. PARAPERTUSSIS- RESP PCR PAN NOT DETECTED; B. PERTUSSIS- RESP PCR PANEL NOT DETECTED; C. PNEUMONIAE- RESP PCR PANEL NOT DETECTED; CORONAVIRUS NL63-RESP PCR NOT DETECTED; CORONAVIRUS OC43-RESP PCR NOT DETECTED; HUMAN METAPNEUMOVIRUS NOT DETECTED; INFLUENZA A- RESP PCR PANEL NOT DETECTED; INFLUENZA B - RESP PCR PANEL NOT DETECTED; M. PNEUMONIAE- RESP PCR PANEL NOT DETECTED; PARAINFLUENZA VIRUS 1 NOT DETECTED; PARAINFLUENZA VIRUS 2 NOT DETECTED; PARAINFLUENZA VIRUS 3 NOT DETECTED; PARAINFLUENZA VIRUS 4 NOT DETECTED; RHINOVIRUS/ENTEROVIRUS NOT DETECTED; RSV- RESP PCR PANEL NOT DETECTED; SARS-CoV-2 -RESP PCR PANEL NOT DETECTED
[2022-02-10] MEDS ORDERED: ONDANSETRON ODT 4 MG Prepack 2 TL PRN (04:32)
--- NOTE | 2022-02-10 07:29 | CT Report ---
PROCEDURE: HEAD WO INDICATIONS: THOMAS, h/o Pseudotumor cerebri TECHNIQUE: Noncontrast 4.5 mm thick angled axial sections acquired from the foramen magnum to the vertex. For r adiation dose reduction, the following was used: automated exposure control, adjustment of mA and/or kV according to patient size. COMPARISON: None. FINDINGS: Image quality: Excellent. CSF spaces: Basal cisterns are patent. No extra-axial fluid collections. Ventricles are normal in size and shape. Brain: No midline shift. No intracranial masses or hemorrhage. [place]-white matter interface is norm al. Skull and face: Calvarium and visualized facial bones are intact, without suspicious lesions. Sinuses: Visualized sinuses and mastoids are clear. IMPRESSION: No acute intracranial disease process. Reviewed by: Harriet Yi MD, PhD on 02/10/2022 7:28 AM PDT Approved by: Harriet Yi MD, PhD on 02/10/2022 7:28 AM PDT Station ID: [id number]
--- NOTE | 2022-02-10 08:17 | CT Report ---
PROCEDURE: Abdomen/Pelvis W INDICATIONS: RUQ abd pain CONTRAST: IV CONTRAST: Optiray 320 ml: 100 PO CONTRAST: *NO PO CONTRAST TECHNIQUE: After the administration of IV contrast, 5 mm thick sections acquired from the diaphragms to the symp hysis. 5 mm thick coronal and sagittal reformats were acquired. For radiation dose reduction, the f ollowing was used: automated exposure control, adjustment of mA and/or kV according to patient size. COMPARISON: Ultrasound of abdomen dated 11/24/2020. FINDINGS: Image quality: Excellent. ABDOMEN: Lung bases: Lung bases are clear. Heart size is normal. Solid organs: There is hepatomegaly and hepatic steatosis, no discrete hepatic lesion. Spleen is norm al in size and show normal enhancement. Gallbladder is surgically absent. Biliary system is non dila adriel. Pancreas enhances normally. No adrenal nodules. Kidneys demonstrate normal size and enhanceme nt, without hydronephrosis. Peritoneum and bowel: Bowel loops demonstrate normal wall thickness and caliber. No free fluid or a ir no evidence of acute appendicitis. Nodes and vessels: No retroperitoneal or mesenteric adenopathy by size criteria. A few small right m esenteric lymph nodes are seen, which could represent mesenteric adenitis. Aorta and inferior vena c edmund are normal in size. Miscellaneous: No ventral hernias. PELVIS: Genitourinary: Bladder wall thickness is normal. Miscellaneous: No inguinal hernias or adenopathy. Bones: No suspicious bony lesions. No vertebral body compression fractures. IMPRESSION: 1. No bowel obstruction or abnormal bowel wall thickening. No free fluid of free air. No evidence of acute appendicitis. 2. Small benign-appearing mesenteric lymph nodes seen in right abdomen which could represent clinical diagnosis of mild mesenteric adenitis suggest clinical correlation. 3. Hepatomegaly and hepatic steatosis. 4. Prior cholecystectomy. No significant discrepancies from preliminary reading. Reviewed by: Tono Payne MD on 02/10/2022 8:16 AM PDT Approved by: Tono Payne MD on 02/10/2022 8:16 AM PDT Station ID: [id number]
== END 2022-02-10 05:03 | disposition home or self-care (01) ==
LOC: ED 00:33
DX: R11.2 Nausea with vomiting, unspecified (principal); R20.2 Paresthesia of skin; R10.9 Unspecified abdominal pain; G93.2 Benign intracranial hypertension
CPT/HCPCS: 36415; 70450; 74177; 80053; 80320; 81003; 82550; 83605; 83690; 84443; 84702; 85025; 85610; 87633; 96374; 96375; 99284; J1200; Q9967; 81001; 87086

== ENCOUNTER 2022-08-07 20:59 | Outpatient (CLI) | payer OTHER | END 2022-08-07 21:00 | disposition critical access hospital (66) | LOC: EMS 20:59 | DX: R55 Syncope and collapse (principal); M54.2 Cervicalgia; R05.9 Cough, unspecified; R11.2 Nausea with vomiting, unspecified; Z20.828 Contact with and (suspected) exposure to other viral communicable diseases | CPT/HCPCS: A0425; A0427 ==

== ENCOUNTER 2022-08-07 21:13 | Emergency (ER) | payer OTHER ==
[2022-08-07 22:05] LABS: BASOPHILS % (AUTO) 0.3 %; EOSINOPHILS # (AUTO) 0.3 10^3/uL (0.0-0.7); EOSINOPHILS % (AUTO) 2.4 %; HCT - HEMATOCRIT 37.7 % (37.0-47.0); HGB - HEMOGLOBIN 12.3 g/dL (12.0-16.0); LYMPHOCYTES # (AUTO) 1.8 10^3/uL (1.5-3.5); LYMPHOCYTES % (AUTO) 15.5 %; MEAN CORPUSCULAR HEMOGLOBIN 27.5 pg (27.0-31.0); MEAN CORPUSCULAR HGB CONC 32.6 g/dL (32.0-36.0); MEAN CORPUSCULAR VOLUME 84.2 fL (81.0-99.0); MEAN PLATELET VOLUME 9.5 fL (7.9-10.8); MONOCYTES # (AUTO) 0.7 10^3/uL (0.0-1.0); NEUTROPHILS # (AUTO) 8.8 10^3/uL (1.5-6.6); NEUTROPHILS % (AUTO) 75.5 %; PLT - PLATELET COUNT 324 10^3/uL (130-450); RED BLOOD COUNT 4.48 10^6/uL (4.20-5.40); RED CELL DISTRIBUTION WIDTH 14.1 % (12.0-15.0); WHITE BLOOD COUNT 11.6 x10^3/uL (4.8-10.8)
[2022-08-07 22:23] LABS: ALBUMIN 3.8 g/dL (3.2-5.5); ALBUMIN/GLOBULIN RATIO 1.2 (1.0-2.2); BILIRUBIN,TOTAL 0.2 mg/dL (0.2-1.0); CALCIUM 8.3 mg/dL (8.5-10.3); CREATININE 0.8 mg/dL (0.4-1.0); POTASSIUM 3.3 mmol/L (3.5-5.0); TOTAL PROTEIN 6.9 g/dL (6.7-8.2)
[2022-08-07 22:33] LABS: HCG UR QUAL NEGATIVE
--- NOTE | 2022-08-07 23:11 | ED Physician Documentation ---
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 patient's son had flu A last week and she has been feeling feverish this week as well, with nbnb n/v, headache, and body aches the past couple days. This evening while talking on facetime she felt a wave of nausea, lightheadedness, and wooshing in the ears then her spouse reported she slumped over, twitching. a minute later she came back to consciousness and reports feeling weak but alert. denies tongue biting, incontinence. no seizure history. AOX4 in ED. 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 HEENT: None Psych: Anxiety Musculoskeletal: Scoliosis Derm: Eczema - Past Surgical History Past Surgical History: Yes General: Cholecystectomy HEENT: Tonsil/Adenoidectomy - Present Medications Home Medications: Ambulatory Orders Medication Instructions Recorded Confirmed Levothyroxine Sodium 50 mcg PO DAILY 12/05/21 02/10/22 [Levothyroxine] acetaZOLAMIDE ER [Diamox ER] 500 mg PO DAILY 12/05/21 02/10/22 Ondansetron Odt [Zofran] 4 mg TL Q6H PRN #10 tablet 02/10/22 - Allergies Allergies/Adverse Reactions: Allergies Allergy/AdvReac Type Severity Reaction Status Date / Time amoxicillin Allergy Unknown Verified 08/07/22 21:27 duloxetine [From Cymbalta] Allergy Edema Verified 08/07/22 21:27 Iodinated Contrast Media Allergy Hives Verified 08/07/22 21:27 Penicillins Allergy Unknown Verified 08/07/22 21:27 cephalexin [From Keflex] AdvReac Nausea Verified 08/07/22 21:27 - Social History Does the pt smoke?: No Smoking Status: Never smoker Does the pt drink ETOH?: No Does the pt have substance abuse?: No - Immunizations Immunizations are current?: No Immunizations: Other immun not current - POLST Patient has POLST: No PD ED PE NORMAL - Vitals Vital signs reviewed: Yes - General General: Alert and oriented X 3, No acute distress, Well developed/nourished - HEENT HEENT: Atraumatic, PERRL, EOMI, Moist mucous membranes, Pharynx benign - Neck Neck: Supple, no meningeal sign - Cardiac Cardiac: RRR - Respiratory Respiratory: No respiratory distress, Clear bilaterally - Abdomen Abdomen: Non tender, Non distended - Derm Derm: Normal color, Warm and dry - Extremities Extremities: No deformity - Neuro Neuro: Alert and oriented X 3, baby sitter 2-12 intact, No motor deficit, No sensory deficit, Normal speech Eye Opening: Spontaneous Motor: Obeys Commands Verbal: Oriented GCS Score: 15 - Psych Psych: Normal mood, Normal affect Results - Vitals Vitals: Vital Signs - 24 hr 08/07/22 23:16 Heart Rate 63 Respiratory 19 Rate Blood Pressure 125/75 O2 Saturation 100 Oxygen O2 Source Room air - Labs Labs: Laboratory Tests 08/07/22 08/07/22 08/07/22 22:00 22:00 22:00 WBC 11.6 H RBC 4.48 Hgb 12.3 Hct 37.7 MCV 84.2 MCH 27.5 MCHC 32.6 RDW 14.1 Plt Count 324 MPV 9.5 Neut # (Auto) 8.8 H Lymph # (Auto) 1.8 Taliaferro # (Auto) 0.7 Eos # (Auto) 0.3 Baso # (Auto) 0.0 Absolute Nucleated RBC 0.00 Nucleated RBC % 0.0 Sodium 137 Potassium 3.3 L Chloride 106 Carbon Dioxide 24 Anion Gap 7.0 BUN 9 Creatinine 0.8 Estimated GFR (MDRD) 86 L Glucose 108 H Calcium 8.3 L Total Bilirubin 0.2 AST 30 ALT 54 Alkaline Phosphatase 122 H Troponin I High Sens 3.4 Total Protein 6.9 Albumin 3.8 Globulin 3.1 Albumin/Globulin Ratio 1.2 Lipase 29 Urine HCG, Qual 08/07/22 22:10 WBC RBC Hgb Hct MCV MCH MCHC RDW Plt Count MPV Neut # (Auto) Lymph # (Auto) Taliaferro # (Auto) Eos # (Auto) Baso # (Auto) Absolute Nucleated RBC Nucleated RBC % Sodium Potassium Chloride Carbon Dioxide Anion Gap BUN Creatinine Estimated GFR (MDRD) Glucose Calcium Total Bilirubin AST ALT Alkaline Phosphatase Troponin I High Sens Total Protein Albumin Globulin Albumin/Globulin Ratio Lipase Urine HCG, Qual NEGATIVE PD MEDICAL DECISION MAKING - ED course ED course: patient with noncontributory labwork. Normal vitals and exam, with no FND. plan to f/u with [facility]. symptom care discussed and return precautions given. Departure - Departure Disposition: 01 Home, Self Care Clinical Impression: Syncope Condition: Stable Instructions: ED Syncope Vasovagal Comments: You were seen in the ED after a fainting episode. Your vital signs, physical exam, and labwork uncovered no emergent issues. Please follow up with [facility] and return to the ED if you have new or worsening symptoms or other concerns. Discharge Date/Time: 08/07/22 23:16
[2022-08-07 23:17] VITALS: BP 125/75
== END 2022-08-07 23:16 | disposition home or self-care (01) ==
LOC: EDUNIT# → ED 21:13
DX: R55 Syncope and collapse (principal); R53.1 Weakness; R51.9 Headache, unspecified; R11.2 Nausea with vomiting, unspecified
CPT/HCPCS: 36415; 80053; 81025; 83690; 84484; 85025; 93005; 99282; 99284

== ENCOUNTER 2022-10-27 21:03 | Outpatient (CLI) | payer OTHER | END 2022-10-27 21:04 | disposition critical access hospital (66) | LOC: EMS 21:03 | DX: R13.10 Dysphagia, unspecified (principal); M54.2 Cervicalgia | CPT/HCPCS: A0425; A0429 ==

== ENCOUNTER 2022-10-27 21:18 | Emergency (ER) | payer OTHER ==
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
[2022-10-27 22:09] VITALS: BP 121/71
== END 2022-10-27 22:08 | disposition home or self-care (01) ==
LOC: EDUNIT# → ED 21:18
DX: M54.2 Cervicalgia (principal); G89.29 Other chronic pain; H69.80 Other specified disorders of Eustachian tube, unspecified ear; R20.2 Paresthesia of skin; J34.89 Other specified disorders of nose and nasal sinuses
CPT/HCPCS: 99283

== ENCOUNTER 2022-12-22 11:00 | Outpatient (CLI) | payer OTHER | END 2022-12-22 11:15 | disposition home or self-care (01) | LOC: LAB.N 11:00 | PROVIDERS: ATTEND Physician Assistant | DX: R00.2 Palpitations (principal) | CPT/HCPCS: 80053; 83735; 84443; 85025 ==

== ENCOUNTER 2022-12-22 13:14 | Outpatient (CLI) | payer OTHER ==
--- NOTE | 2022-12-22 14:07 | XRAY Report ---
PROCEDURE: Cervical Spine 2 View INDICATIONS: Neck Pain TECHNIQUE: 3 view(s) of the cervical spine were acquired. COMPARISON: CT cervical spine 11/06/2009 FINDINGS: Bones: No fractures or dislocations to the C7-T1 level. Odontoid is suboptimally evaluated. No suspi cious bony lesions. There is straightening of normal cervical curvature. Soft tissues: No prevertebral soft tissue swelling. IMPRESSION: Straightening of normal cervical curvature. Reviewed by: Savita Garcia MD on 12/22/2022 2:05 PM PDT Approved by: Savita Garcia MD on 12/22/2022 2:05 PM PDT Station ID: [id number]
== END 2022-12-22 13:15 | disposition home or self-care (01) ==
LOC: DI 13:14
PROVIDERS: ATTEND Physician Assistant
DX: R00.2 Palpitations (principal)

== ENCOUNTER 2023-05-15 16:36 | Outpatient (CLI) | payer OTHER ==
--- NOTE | 2023-05-16 10:18 | Ultrasound Report ---
PROCEDURE: Pelvic w/Transvaginal INDICATIONS: IRREGULAR MENSTRATION TECHNIQUE: Real-time scanning was performed of the pelvic organs, with image documentation. Additional endovagi nal scanning was necessary due to incomplete visualization of the adnexal and endometrial structures by transabdominal scanning. COMPARISON: None. FINDINGS: Uterus: Uterus measures 7.6 x 3.4 x 4.8 cm. Anteverted positioning. Endometrium measures 8 mm. Ovaries: Ovaries are not well seen. Other: No pathologic free fluid. IMPRESSION: Adnexal structures not well seen. No acute abnormality of the uterus. Limited tolerance of exam due to pain. Reviewed by: Randall Nichols MD on 05/16/2023 10:17 AM PDT Approved by: Randall Nichols MD on 05/16/2023 10:17 AM PDT Station ID: [id number]
== END 2023-05-15 16:37 | disposition home or self-care (01) ==
LOC: DI 16:36
PROVIDERS: ATTEND Physician Assistant
DX: N92.6 Irregular menstruation, unspecified (principal)

== ENCOUNTER 2023-05-30 11:45 | Outpatient (CLI) | payer OTHER ==
[2023-05-30 17:57] LABS: BASOPHILS % (AUTO) 0.2 %; EOSINOPHILS # (AUTO) 0.4 10^3/uL (0.0-0.7); EOSINOPHILS % (AUTO) 3.8 %; HCT - HEMATOCRIT 42.2 % (37.0-47.0); HGB - HEMOGLOBIN 13.6 g/dL (12.0-16.0); LYMPHOCYTES # (AUTO) 1.6 10^3/uL (1.5-3.5); LYMPHOCYTES % (AUTO) 16.5 %; MEAN CORPUSCULAR HEMOGLOBIN 27.4 pg (27.0-31.0); MEAN CORPUSCULAR HGB CONC 32.2 g/dL (32.0-36.0); MEAN CORPUSCULAR VOLUME 85.1 fL (81.0-99.0); MEAN PLATELET VOLUME 10.5 fL (7.9-10.8); MONOCYTES # (AUTO) 0.4 10^3/uL (0.0-1.0); MONOCYTES % (AUTO) 4.5 %; NEUTROPHILS % (AUTO) 74.8 %; PLT - PLATELET COUNT 356 10^3/uL (130-450); RED BLOOD COUNT 4.96 10^6/uL (4.20-5.40); RED CELL DISTRIBUTION WIDTH 14.9 % (12.0-15.0); WHITE BLOOD COUNT 9.4 x10^3/uL (4.8-10.8)
[2023-05-30 18:19] LABS: % IRON SATURATION 9 % (20-50); ALBUMIN 4.3 g/dL (3.2-5.5); ALBUMIN/GLOBULIN RATIO 1.4 (1.0-2.2); ALKALINE PHOSPHATASE 121 IU/L (42-121); ALT ALANINE AMINOTRANSFERASE 39 IU/L (10-60); AST ASPARTATE AMINOTRANSFERASE 22 IU/L (10-42); BILIRUBIN,TOTAL 0.5 mg/dL (0.2-1.0); BUN - BLOOD UREA NITROGEN 7 mg/dL (6-20); CALCIUM 9.5 mg/dL (8.5-10.3); CARBON DIOXIDE - CO2 26 mmol/L (21-32); CHLORIDE 104 mmol/L (101-111); CREATININE 0.6 mg/dL (0.6-1.3); GFR - MDRD 119 (>89); GLUCOSE 83 mg/dL (74-104); IRON 38 ug/dL (50-212); POTASSIUM 3.9 mmol/L (3.5-4.5); SODIUM 137 mmol/L (135-145); TOTAL IRON BINDING CAPACITY 414 ug/dL (250-450); TOTAL PROTEIN 7.4 g/dL (6.4-8.9); TRANSFERRIN 296 mg/dL (203-362)
[2023-05-30 18:30] LABS: THYROID STIMULATING HORMONE 3.12 uIU/mL (0.34-5.60)
[2023-05-30 18:37] LABS: FERRITIN 51.5 ng/mL (11.0-306.8)
[2023-05-30 20:43] LABS: ESTIMATED AVERAGE GLUCOSE 97 mg/dL (70-100)
[2023-05-31 06:10] LABS: ESTRADIOL 30.1 pg/mL (.); PROGESTERONE 0.1 ng/mL (.)
== END 2023-05-30 12:00 | disposition home or self-care (01) ==
LOC: LAB.N 11:45
PROVIDERS: ATTEND Registered Nurse
DX: R42 Dizziness and giddiness (principal); N93.9 Abnormal uterine and vaginal bleeding, unspecified; Z30.9 Encounter for contraceptive management, unspecified
CPT/HCPCS: 36415; 80053; 82607; 82670; 82728; 83001; 83002; 83036; 83540; 84144; 84402; 84403; 84443; 84466; 84702; 85025